=== PATIENT | female | born 1980 | race Caucasian/White ===

== ENCOUNTER 2016-10-29 08:22 | Emergency (ER) | payer OTHER ==
[2016-10-29 08:27] VITALS: TEMP 98
--- NOTE | 2016-10-29 08:45 | ED ---
General Adult HPI - General Chief complaint: Vaginal Bleeding Stated complaint: AND BLEEDING Time Seen by Provider: 10/29/16 08:29 Source: patient, RN notes reviewed Mode of arrival: ambulatory Limitations: no limitations - History of Present Illness Initial comments: 36-year-old female presents emergency Department chief complaint vaginal bleeding and . Patient states that she was at her OB on for casting after an abnormal Pap smear though they cannot complete the tests and because she was . Patient had hCG level drawn which was 57. Patient was. Redrawn on Monday. Patient denies any nausea vomiting diarrhea constipation. Patient states she is having lower abdominal pain, cramping. Patient states she is spotting to light bleeding at this time. She states she woke up no cervical bleeding and came to the emergency department. - Related Data Home Medications Medication Instructions Recorded Confirmed Albuterol Inhaler [Ventolin Hfa 2 puff INHALATION RT-Q6H PRN 05/17/16 10/29/16 Inhaler] Budesonide-Formot 160-4.5 Mcg 2 puff INHALATION RT-BID 05/17/16 10/29/16 [Symbicort 160-4.5 Mcg Inhaler] Allergies Allergy/AdvReac Type Severity Reaction Status Date / Time amoxicillin [Amoxicillin] Allergy Anaphylaxis Verified 10/29/16 08:23 aspirin Allergy Anaphylaxis Verified 10/29/16 08:23 Penicillins Allergy Anaphylaxis Verified 10/29/16 08:23 Review of Systems ROS Statement: Those systems with pertinent positive or pertinent negative responses have been documented in the HPI. ROS Other: All systems not noted in ROS Statement are negative. Past Medical History Past Medical History: Asthma Additional Past Medical History / Comment(s): migraines History of Any Multi-Drug Resistant Organisms: None Reported Past Surgical History: Appendectomy, Cholecystectomy, Orthopedic Surgery, Tonsillectomy Additional Past Surgical History / Comment(s): dental surgery Past Psychological History: Anxiety, Depression Smoking Status: Current every day smoker Past Alcohol Use History: None Reported Past Drug Use History: None Reported General Exam Limitations: no limitations General appearance: alert, in no apparent distress Head exam: Present: atraumatic, normocephalic, normal inspection Respiratory exam: Present: normal lung sounds bilaterally. Absent: respiratory distress, wheezes, rales, rhonchi, stridor Cardiovascular Exam: Present: regular rate, normal rhythm, normal heart sounds. Absent: systolic murmur, diastolic murmur, rubs, gallop, clicks GI/Abdominal exam: Present: soft, normal bowel sounds. Absent: distended, tenderness, guarding, rebound, rigid Back exam: Absent: CVA tenderness (R), CVA tenderness (L) Course Vital Signs 10/29/16 08:24 Temperature 98.0 F Pulse Rate 115 H Respiratory 18 Rate Blood Pressure 118/76 O2 Sat by Pulse 95 Oximetry Medical Decision Making - Medical Decision Making 36-year-old female presented for vaginal bleeding . Patient was just at her SURGICAL SPECIALIST on . Patient's hCG went from 57-54. Patient is having a miscarriage at this time. Patient's blood type is a positive does not require broke him. Patient is upset at this time refuses pelvic exam. Patient states that she just had this done by her SURGICAL SPECIALIST. - Lab Data Result diagrams: 10/29/16 08:51 10/29/16 08:51 Lab Results 10/29/16 10/29/16 10/29/16 Range/Units 08:51 08:51 08:55 WBC 9.7 (3.8-10.6) k/uL RBC 5.00 (3.80-5.40) m/uL Hgb 15.6 (11.4-16.0) gm/dL Hct 45.4 (34.0-46.0) % MCV 90.8 (80.0-100.0) fL MCH 31.2 (25.0-35.0) pg MCHC 34.4 (31.0-37.0) g/dL RDW 12.3 (11.5-15.5) % Plt Count 262 (150-450) k/uL Neutrophils % 60 % Lymphocytes % 27 % Monocytes % 6 % Eosinophils % 4 % Basophils % 1 % Neutrophils # 5.8 (1.3-7.7) k/uL Lymphocytes # 2.6 (1.0-4.8) k/uL Monocytes # 0.6 (0-1.0) k/uL Eosinophils # 0.3 (0-0.7) k/uL Basophils # 0.1 (0-0.2) k/uL Sodium 142 (137-145) mmol/L Potassium 4.5 (3.5-5.1) mmol/L Chloride 107 (98-107) mmol/L Carbon Dioxide 24 (22-30) mmol/L Anion Gap 11 mmol/L BUN 11 (7-17) mg/dL Creatinine 0.71 (0.52-1.04) mg/dL Est GFR (MDRD) Af Amer >60 (>60 ml/min/1.73 sqM) Est GFR (MDRD) Non-Af >60 (>60 ml/min/1.73 sqM) Glucose 98 (74-99) mg/dL Calcium 9.6 (8.4-10.2) mg/dL HCG, Quant 54.3 mIU/mL Blood Type A Positive Blood Type Recheck No Disposition Clinical Impression: Miscarriage Disposition: HOME SELF-CARE Condition: Stable Instructions: Miscarriage (ED) Additional Instructions: Please return to the Emergency Department if symptoms worsen or any other concerns. Follow-up with your SURGICAL SPECIALIST is discussed. Time of Disposition: 10:40
[2016-10-29 09:00] LABS: Basophils # (A) 0.1 k/uL (0-0.2); Basophils % (A) 1 %; CHCM 35.3; Eosinophils # (A) 0.3 k/uL (0-0.7); Eosinophils % (A) 4 %; HCT 45.4 % (34.0-46.0); HDW 2.49; HGB 15.6 gm/dL (11.4-16.0); Luc # (Auto) 0.23; Luc % (Auto) 2; Lymphocytes # (A) 2.6 k/uL (1.0-4.8); Lymphocytes % (A) 27 %; MCH 31.2 pg (25.0-35.0); MCHC 34.4 g/dL (31.0-37.0); MCV 90.8 fL (80.0-100.0); Mean Platelet Volume 7.3; Monocytes # (A) 0.6 k/uL (0-1.0); Monocytes % (A) 6 %; Neutrophils # (A) 5.8 k/uL (1.3-7.7); Neutrophils % (A) 60 %; RDW 12.3 % (11.5-15.5); WBC 9.7 k/uL (3.8-10.6); WBC (Perox) 9.67
[2016-10-29 09:16] LABS: Anion Gap 11 mmol/L; Blood Urea Nitrogen 11 mg/dL (7-17); Calcium 9.6 mg/dL (8.4-10.2); Carbon Dioxide 24 mmol/L (22-30); Chloride 107 mmol/L (98-107); Glucose 98 mg/dL (74-99); Non-African American GFR(MDRD) >60 (>60 ml/min/1.73 sqM); Potassium 4.5 mmol/L (3.5-5.1); Sodium 142 mmol/L (137-145)
[2016-10-29 09:33] LABS: HCG,Quantitative Serum 54.3 mIU/mL
[2016-10-29 10:49] VITALS: BP 126/74; PULSE 89; RESP 16
--- NOTE | 2016-10-29 19:38 | US ---
EXAMINATION TYPE: US OB <=14 wks transvag DATE OF EXAM: 10/29/2016 9:42 AM COMPARISON: No previous CLINICAL HISTORY: Pain. Bleeding and cramping x 2 days, 1 EXAM PERFORMED: Transvaginal (TV) and Transabdominal (TA) transvaginal imaging performed for better evaluation of the uterus and ovaries. Grayscale, color Doppler imaging performed. EXAM MEASUREMENTS: GESTATIONAL AGE / DATING Physician Established: Not established yet Dates by LMP: (5 weeks/1 days) EDC: 06/30/2017 Dates by First Scan: This is 1st scan Dates by Current Scan for: No IUP seen at this time MATERNAL ANATOMY Uterus: 6.7 x 3.5 x 3.9cm, anteverted, multiple nabothian cyst Endometrium: 0.4cm Right Ovary: 2.3 x 1.6 x 1.2cm Left Ovary: 2.4 x 1.1 x 2.1cm, 0.7cm cystic area Post CDS / Adnexa: wnl Presence of free fluid: no Presence of corpus luteal cyst: not seen at this time Presence of subchorionic bleed: no GESTATION / SURVEY IUP: No IUP seen at this time Date of LMP: 09/23/16 Beta HcG (if available): 54.3 No IUP seen at this time IMPRESSION: Intrauterine is not identified.
== END 2016-10-29 10:49 | disposition home or self-care (01) ==
LOC: EC 08:22
DX: O03.9 Complete or unspecified spontaneous abortion without complication (principal); O99.511 Diseases of the respiratory system complicating pregnancy, first trimester; J45.909 Unspecified asthma, uncomplicated; Z3A.01 Less than 8 weeks gestation of pregnancy; Z79.899 Other long term (current) drug therapy; Z88.0 Allergy status to penicillin; Z88.6 Allergy status to analgesic agent
CPT/HCPCS: 36415; 76801; 76817; 80048; 84702; 85025; 86900; 86901; 99284

== ENCOUNTER 2016-12-14 01:36 | Emergency (ER) | payer OTHER ==
[2016-12-14 01:51] VITALS: RESP 18
[2016-12-14] MEDS ORDERED: SODIUM CHLORIDE 0.9% 1,000 ML IV STA (01:52)
[2016-12-14] MEDS ORDERED: LORazepam 2 MG/ML SYRINGE IV STA (01:52)
--- NOTE | 2016-12-14 02:00 | ED ---
General Adult HPI - General Chief complaint: Syncope Stated complaint: Syncope,lost time Time Seen by Provider: 12/14/16 01:47 Source: patient, RN notes reviewed Mode of arrival: wheelchair Limitations: no limitations - History of Present Illness Initial comments: 36-year-old female presents to the emergency department with a chief complaint of concern for unusual behavior. Patient states she woke up out of sleep gasping. Patient states she went to sit at the side the bed and then she lost track of time. Patient states when she woke up she was laying on the bed she had wet herself. Patient states that she seemed confused after that. Patient states this feeling came here to the emergency department. Patient is currently being worked up for these episodes that she has had one other in the past. She scheduled to see a neurologist as well as the construction technician. Patient states she does have a headache. Patient does have a history of migraines states his headache is more pronounced throughout her whole head. Patient states she was concerned due to what have so she thought that she should be seen. Patient denies any symptoms at this time it does believe that she is return to normal. Patient denies any recent fever, chills, shortness of breath, chest pain, back pain, abdominal pain, nausea vomiting, numbness or tingling, dysuria or hematuria, constipation or diarrhea, visual changes, or any other current symptoms. - Related Data Home Medications Medication Instructions Recorded Confirmed Albuterol Inhaler [Ventolin Hfa 1 - 2 puff INHALATION Q6HR PRN 11/29/16 12/14/16 Inhaler] Budesonide-Formot 160-4.5 Mcg 2 puff INHALATION BID 11/29/16 12/14/16 [Symbicort 160-4.5 Mcg Inhaler] Allergies Allergy/AdvReac Type Severity Reaction Status Date / Time amoxicillin [Amoxicillin] Allergy Anaphylaxis Verified 11/29/16 16:01 aspirin Allergy Anaphylaxis Verified 11/29/16 16:01 Penicillins Allergy Anaphylaxis Verified 11/29/16 16:01 Review of Systems ROS Statement: Those systems with pertinent positive or pertinent negative responses have been documented in the HPI. ROS Other: All systems not noted in ROS Statement are negative. Past Medical History Past Medical History: Asthma Additional Past Medical History / Comment(s): migraines History of Any Multi-Drug Resistant Organisms: None Reported Past Surgical History: Appendectomy, Cholecystectomy, Orthopedic Surgery, Tonsillectomy Additional Past Surgical History / Comment(s): dental surgery Past Psychological History: Anxiety, Depression Smoking Status: Current every day smoker Past Alcohol Use History: None Reported Past Drug Use History: None Reported General Exam - General Exam Comments Initial Comments: General: The patient is awake and alert, in no distress, and does not appear acutely ill. Eye: Pupils are equal, round and reactive to light, extra-ocular movements are intact; there is normal conjunctiva bilaterally. No signs of icterus. Ears, nose, mouth and throat: There are moist mucous membranes. Neck: The neck is supple, there is no tenderness. Cardiovascular: There is a regular rate and rhythm. No murmur, rub or gallop is appreciated. Respiratory: Lungs are clear to auscultation, respirations are non-labored, breath sounds are equal. No wheezes, stridor, rales, or rhonchi. Gastrointestinal: Soft, non-distended, non-tender abdomen without masses or organomegaly noted. There is no rebound or guarding present. No CVA tenderness. Bowel sounds are unremarkable. Back: There is no tenderness to palpation in the midline. There is no obvious deformity. No rashes noted. Musculoskeletal: Normal ROM, no tenderness, There is no pedal edema. There is no calf tenderness or swelling. Sensation intact. Pulses equal bilaterally 2+. Neurological: CN II-XII intact, There are no obvious motor or sensory deficits. Coordination appears grossly intact. Speech is normal. Skin: Skin is warm and dry and no rashes or lesions are noted. Psychiatric: Cooperative, appropriate mood & affect, normal judgment. Limitations: no limitations Course Vital Signs 12/14/16 01:41 Temperature 97.7 F Pulse Rate 81 Respiratory 18 Rate Blood Pressure 111/72 O2 Sat by Pulse 98 Oximetry EKG Findings - EKG Comments: EKG Findings:: normal sinus rhythm 76 bpm, normal axis, no atopy, no S-T depressions or elevations, Medical Decision Making - Medical Decision Making 36-year-old female presents emergency department with a chief complaint of what sounds like seizure-like activity. This time we discussed continued outpatient follow-up. We discussed return parameters all patient's questions. She stated that she understood and she plan. This time she will be discharged home. - Lab Data Result diagrams: 12/14/16 02:11 12/14/16 02:11 Lab Results 12/14/16 12/14/16 12/14/16 Range/Units 02:11 02:11 03:00 WBC 9.4 (3.8-10.6) k/uL RBC 4.51 (3.80-5.40) m/uL Hgb 14.2 (11.4-16.0) gm/dL Hct 42.2 (34.0-46.0) % MCV 93.6 (80.0-100.0) fL MCH 31.4 (25.0-35.0) pg MCHC 33.5 (31.0-37.0) g/dL RDW 13.0 (11.5-15.5) % Plt Count 216 (150-450) k/uL Neutrophils % 52 % Lymphocytes % 35 % Monocytes % 6 % Eosinophils % 5 % Basophils % 1 % Neutrophils # 4.9 (1.3-7.7) k/uL Lymphocytes # 3.3 (1.0-4.8) k/uL Monocytes # 0.5 (0-1.0) k/uL Eosinophils # 0.5 (0-0.7) k/uL Basophils # 0.1 (0-0.2) k/uL Sodium 139 (137-145) mmol/L Potassium 3.9 (3.5-5.1) mmol/L Chloride 108 H (98-107) mmol/L Carbon Dioxide 24 (22-30) mmol/L Anion Gap 7 mmol/L BUN 15 (7-17) mg/dL Creatinine 0.81 (0.52-1.04) mg/dL Est GFR (MDRD) Af Amer >60 (>60 ml/min/1.73 sqM) Est GFR (MDRD) Non-Af >60 (>60 ml/min/1.73 sqM) Glucose 100 H (74-99) mg/dL Calcium 8.8 (8.4-10.2) mg/dL Total Bilirubin 0.6 (0.2-1.3) mg/dL AST 14 (14-36) U/L ALT 18 (9-52) U/L Alkaline Phosphatase 51 (38-126) U/L Total Protein 6.5 (6.3-8.2) g/dL Albumin 3.8 (3.5-5.0) g/dL Urine Color Light Yellow Urine Appearance Clear (Clear) Urine pH 5.0 (5.0-8.0) Ur Specific [place] 1.007 (1.001-1.035) Urine Protein Negative (Negative) Urine Glucose (UA) Negative (Negative) Urine Ketones Negative (Negative) Urine Blood Negative (Negative) Urine Nitrite Negative (Negative) Urine Bilirubin Negative (Negative) Urine Urobilinogen <2.0 (<2.0) mg/dL Ur Leukocyte Esterase Moderate H (Negative) Urine RBC 1 (0-5) /hpf Urine WBC 5 (0-5) /hpf Ur Squamous Epith Cells 2 (0-4) /hpf Urine Bacteria Rare H (None) /hpf Urine Mucus Rare H (None) /hpf Urine Sperm Few H (None) /hpf Urine Opiates Screen Not Detected (NotDetected) Ur Oxycodone Screen Not Detected (NotDetected) Urine Methadone Screen Not Detected (NotDetected) Ur Propoxyphene Screen Not Detected (NotDetected) Ur Barbiturates Screen Not Detected (NotDetected) U Tricyclic Antidepress Not Detected (NotDetected) Ur Phencyclidine Scrn Not Detected (NotDetected) Ur Amphetamines Screen Not Detected (NotDetected) U Methamphetamines Scrn Not Detected (NotDetected) U Benzodiazepines Scrn Not Detected (NotDetected) Urine Cocaine Screen Not Detected (NotDetected) U Marijuana (THC) Screen Not Detected (NotDetected) - Radiology Data Radiology results: report reviewed, image reviewed Disposition Clinical Impression: Seizure-like activity Disposition: HOME SELF-CARE Condition: Stable Instructions: New-Onset Seizure in Adults (ED) Additional Instructions: Please use medication as discussed. Please follow up with family doctor if symptoms have not improved over the next two days. Please return to the emergency room if your symptoms increase or worsen or for any other concerns. No driving for 6 months or until cleared by your neurologist. Referrals: Lupe Wick MD [Primary Care Provider] - 1-2 days Time of Disposition: 03:34
[2016-12-14 02:19] LABS: Basophils # (A) 0.1 k/uL (0-0.2); Basophils % (A) 1 %; CH 31.9; CHCM 34.2; Eosinophils # (A) 0.5 k/uL (0-0.7); Eosinophils % (A) 5 %; HCT 42.2 % (34.0-46.0); HGB 14.2 gm/dL (11.4-16.0); Luc # (Auto) 0.15; Luc % (Auto) 2; Lymphocytes # (A) 3.3 k/uL (1.0-4.8); Lymphocytes % (A) 35 %; MCH 31.4 pg (25.0-35.0); MCHC 33.5 g/dL (31.0-37.0); MCV 93.6 fL (80.0-100.0); Mean Platelet Volume 7.5; Monocytes # (A) 0.5 k/uL (0-1.0); Monocytes % (A) 6 %; Neutrophils # (A) 4.9 k/uL (1.3-7.7); Neutrophils % (A) 52 %; RBC 4.51 m/uL (3.80-5.40); WBC 9.4 k/uL (3.8-10.6); WBC (Perox) 9.27
[2016-12-14 02:28] LABS: ALT 18 U/L (9-52); AST 14 U/L (14-36); Alkaline Phosphatase 51 U/L (38-126); Anion Gap 7 mmol/L; Blood Urea Nitrogen 15 mg/dL (7-17); Calcium 8.8 mg/dL (8.4-10.2); Carbon Dioxide 24 mmol/L (22-30); Chloride 108 mmol/L (98-107); Glucose 100 mg/dL (74-99); Non-African American GFR(MDRD) >60 (>60 ml/min/1.73 sqM); Potassium 3.9 mmol/L (3.5-5.1); Sodium 139 mmol/L (137-145); Total Bilirubin 0.6 mg/dL (0.2-1.3); Total Protein 6.5 g/dL (6.3-8.2)
--- NOTE | 2016-12-14 03:16 | CT ---
History: Reason: seizure activity Exam: CT HEAD Without Contrast axial noncontrast images through the brain with multiplanar reformatted images Technique more: CTDI is 57.40 mGy and DLP is 1015.30 mGy-cm. Technique more: This CT exam was performed using one or more of the following dose reduction techniques: automated exposure control, adjustment of the mA and/or kV according to patient size, and/or use of iterative reconstruction technique. Comparison: None available FINDINGS: No intracranial hemorrhage or mass effect. The shah-white differentiation appears preserved. The ventricles are within limits and midline. The visualized paranasal sinuses, mastoid and orbits are within limits. IMPRESSION: No intracranial hemorrhage or mass effect. If no known seizure disorder, may follow-up with nonemergent MRI as warranted.
[2016-12-14 03:18] LABS: Appearance,Urine Clear (Clear); Bacteria,Urine Rare /hpf; Bilirubin,Urine Negative (Negative); Glucose,Urine (UA) Negative (Negative); Ketones,Urine Negative (Negative); Leukocyte Esterase,Urine Moderate (Negative); Mucus,Urine Rare /hpf; Nitrite,Urine Negative (Negative); Particle Count 2678; Protein,Urine Negative (Negative); RBC,Urine 1 /hpf (0-5); Specific Gravity,Urine 1.007 (1.001-1.035); Sperm,Urine Few /hpf; Squamous Epithelial Cell,Urine 2 /hpf (0-4); UA Billing (MACRO vs. MICRO) MICRO; Urobilinogen,Urine <2.0 mg/dL (<2.0); WBC,Urine 5 /hpf (0-5)
[2016-12-14] MEDS ORDERED: METOCLOPRAMIDE 5 MG/ML 2 ML VIAL IVP STA (03:18)
[2016-12-14] MEDS ORDERED: diphenhydrAMINE 50 MG/ML 1 ML VIAL IVP STA (03:18)
[2016-12-14] MEDS ORDERED: KETOROLAC 30 MG/ML 1 ML VIAL IVP STA (03:18)
[2016-12-14 03:48] VITALS: BP 100/56; PULSE 80; TEMP 98.8
== END 2016-12-14 03:59 | disposition home or self-care (01) ==
LOC: EC 01:36
DX: R56.9 Unspecified convulsions (principal); J45.909 Unspecified asthma, uncomplicated; F17.200 Nicotine dependence, unspecified, uncomplicated; Z79.51 Long term (current) use of inhaled steroids; Z88.0 Allergy status to penicillin; Z88.6 Allergy status to analgesic agent
CPT/HCPCS: 36415; 93005; 80053; 85025; 81001; 80306; 70450; 99284; 96374; 96375 ×3; 96361; J2060; J1200; J2765; J1885

== ENCOUNTER → 2016-12-16 | Outpatient (CLI) | payer OTHER ==
--- NOTE | 2016-12-16 13:15 | MR ---
EXAMINATION TYPE: MR brain wo con DATE OF EXAM: 12/16/2016 12:25 PM. COMPARISON: CT scan of the brain dated 12/14/2016. HISTORY: Headaches and syncope. Technique: Multiplanar, multiecho imaging of the brain was obtained without intravenous contrast. FINDINGS: Midline structures are unremarkable. There is a normal craniocervical junction. Echoplanar diffusion imaging is normal. There are normal vascular flow voids. There is mild, chronic mucoperiosteal thickening involving the ethmoid sinuses. The orbits are normal. There is no evidence of a CP angle mass lesion. There is no focal lesion, mass effect or midline shif t identified. I do not see evidence of intracranial blood. IMPRESSION: 1. NO ACUTE INTRACRANIAL ABNORMALITY. 2. MILD, CHRONIC ETHMOIDAL SINUS MUCOSAL DISEASE.
== END | disposition home or self-care (01) ==
LOC: RADMRIMAIN 11:53
PROVIDERS: ATTEND Family Medicine
DX: R51 Headache (principal); R55 Syncope and collapse
CPT/HCPCS: 70551

== ENCOUNTER 2017-02-15 00:50 | Emergency (ER) | payer OTHER ==
[2017-02-15 00:55] VITALS: RESP 18
[2017-02-15] MEDS ORDERED: SODIUM CHLORIDE 0.9% 1,000 ML IV ONE (01:36)
[2017-02-15] MEDS ORDERED: METOCLOPRAMIDE 5 MG/ML 2 ML VIAL IVP STA (01:37)
[2017-02-15] MEDS ORDERED: diphenhydrAMINE 50 MG/ML 1 ML VIAL IVP STA (01:37)
--- NOTE | 2017-02-15 01:38 | ED ---
Headache HPI - General Chief Complaint: Headache Stated Complaint: Migrane Time Seen by Provider: 02/15/17 01:14 Source: RN notes reviewed Mode of arrival: EMS Limitations: no limitations - History of Present Illness Initial Comments: Patient is a 36-year-old female since emergency room for reevaluation headache. Patient states she has a history of migraine headaches. Patient states this headache is a lot worse. Patient states migraine headache began yesterday gradually been getting worse. Patient states medication she's been taking at home about been helping. Patient states been nauseous with vomiting. Patient denies fevers or chills. Patient does admit to photophobia and phonophobia. Patient denies abdominal pain. Patient denies chest pain or shortness of breath. Patient denies paresthesias. Patient denies any recent head trauma or neck injuries. Patient states this migraine is different from her normal migraines. Patient states this migraine is a lot worse than usual. - Related Data Home Medications Medication Instructions Recorded Confirmed Albuterol Inhaler [Ventolin Hfa 1 - 2 puff INHALATION Q6HR PRN 11/29/16 12/14/16 Inhaler] Budesonide-Formot 160-4.5 Mcg 2 puff INHALATION BID 11/29/16 12/14/16 [Symbicort 160-4.5 Mcg Inhaler] Allergies Allergy/AdvReac Type Severity Reaction Status Date / Time amoxicillin [Amoxicillin] Allergy Anaphylaxis Verified 02/15/17 00:55 aspirin Allergy Anaphylaxis Verified 11/29/16 16:01 Penicillins Allergy Anaphylaxis Verified 02/15/17 00:55 Review of Systems ROS Statement: Those systems with pertinent positive or pertinent negative responses have been documented in the HPI. ROS Other: All systems not noted in ROS Statement are negative. Past Medical History Past Medical History: Asthma Additional Past Medical History / Comment(s): migraines History of Any Multi-Drug Resistant Organisms: None Reported Past Surgical History: Appendectomy, Cholecystectomy, Orthopedic Surgery, Tonsillectomy Additional Past Surgical History / Comment(s): dental surgery Past Psychological History: Anxiety, Depression Smoking Status: Current every day smoker Past Alcohol Use History: None Reported Past Drug Use History: None Reported General Exam - General Exam Comments Initial Comments: laying in exam room, no acute distress. Limitations: no limitations General appearance: alert, in no apparent distress Head exam: Present: atraumatic, normocephalic, normal inspection Eye exam: Present: normal appearance, PERRL, EOMI Pupils: Present: normal accommodation ENT exam: Present: normal exam Neck exam: Present: normal inspection, full ROM. Absent: tenderness, lymphadenopathy Respiratory exam: Present: normal lung sounds bilaterally. Absent: respiratory distress Cardiovascular Exam: Present: regular rate, normal rhythm, normal heart sounds Neurological exam: Present: alert, oriented X3, CN II-XII intact, normal gait Expanded Patient oriented to: Present: person, place, time Speech: Present: fluid speech Cranial nerves: EOM's Intact: Normal, Facial Sensation: Normal Sensory exam: Upper Extremity Light Touch: Normal, Lower Extremity Light Touch: Normal Motor strength exam: RUE: 5, LUE: 5, RLE: 5, LLE: 5 Psychiatric exam: Present: normal affect, normal mood Skin exam: Present: warm, dry, intact, normal color. Absent: rash Course Vital Signs 02/15/17 00:51 Temperature 97.5 F L Pulse Rate 80 Respiratory 18 Rate Blood Pressure 135/63 O2 Sat by Pulse 96 Oximetry Medical Decision Making - Medical Decision Making patient is a 36-year-old female presents to the emergency room for evaluation of migraine headache. Labs show significant findings. Patient states she is feeling better after fluids and medications given. Brain CT shows no acute findings. Patient states she understands everything that was discussed with her. Return parameters discussed. - Lab Data Result diagrams: 02/15/17 01:00 02/15/17 01:00 Lab Results 02/15/17 02/15/17 02/15/17 Range/Units 01:00 01:00 02:10 WBC 8.7 (3.8-10.6) k/uL RBC 4.73 (3.80-5.40) m/uL Hgb 14.9 (11.4-16.0) gm/dL Hct 43.8 (34.0-46.0) % MCV 92.5 (80.0-100.0) fL MCH 31.4 (25.0-35.0) pg MCHC 34.0 (31.0-37.0) g/dL RDW 13.5 (11.5-15.5) % Plt Count 237 (150-450) k/uL Neutrophils % 54 % Lymphocytes % 32 % Monocytes % 7 % Eosinophils % 3 % Basophils % 1 % Neutrophils # 4.7 (1.3-7.7) k/uL Lymphocytes # 2.8 (1.0-4.8) k/uL Monocytes # 0.6 (0-1.0) k/uL Eosinophils # 0.3 (0-0.7) k/uL Basophils # 0.1 (0-0.2) k/uL Sodium 140 (137-145) mmol/L Potassium 3.9 (3.5-5.1) mmol/L Chloride 106 (98-107) mmol/L Carbon Dioxide 23 (22-30) mmol/L Anion Gap 11 mmol/L BUN 11 (7-17) mg/dL Creatinine 0.80 (0.52-1.04) mg/dL Est GFR (MDRD) Af Amer >60 (>60 ml/min/1.73 sqM) Est GFR (MDRD) Non-Af >60 (>60 ml/min/1.73 sqM) Glucose 85 (74-99) mg/dL Calcium 8.9 (8.4-10.2) mg/dL Total Bilirubin 0.5 (0.2-1.3) mg/dL AST 19 (14-36) U/L ALT 31 (9-52) U/L Alkaline Phosphatase 62 (38-126) U/L Total Protein 6.0 L (6.3-8.2) g/dL Albumin 3.6 (3.5-5.0) g/dL Urine Color Urine Appearance (Clear) Urine pH (5.0-8.0) Ur Specific [place] (1.001-1.035) Urine Protein (Negative) Urine Glucose (UA) (Negative) Urine Ketones (Negative) Urine Blood (Negative) Urine Nitrite (Negative) Urine Bilirubin (Negative) Urine Urobilinogen (<2.0) mg/dL Ur Leukocyte Esterase (Negative) Urine RBC (0-5) /hpf Urine WBC (0-5) /hpf Ur Squamous Epith Cells (0-4) /hpf Urine Bacteria (None) /hpf Hyaline Casts (0-2) /lpf Urine Mucus (None) /hpf Urine HCG, Qual Not Detected (Not Detectd) 02/15/17 Range/Units 02:10 WBC (3.8-10.6) k/uL RBC (3.80-5.40) m/uL Hgb (11.4-16.0) gm/dL Hct (34.0-46.0) % MCV (80.0-100.0) fL MCH (25.0-35.0) pg MCHC (31.0-37.0) g/dL RDW (11.5-15.5) % Plt Count (150-450) k/uL Neutrophils % % Lymphocytes % % Monocytes % % Eosinophils % % Basophils % % Neutrophils # (1.3-7.7) k/uL Lymphocytes # (1.0-4.8) k/uL Monocytes # (0-1.0) k/uL Eosinophils # (0-0.7) k/uL Basophils # (0-0.2) k/uL Sodium (137-145) mmol/L Potassium (3.5-5.1) mmol/L Chloride (98-107) mmol/L Carbon Dioxide (22-30) mmol/L Anion Gap mmol/L BUN (7-17) mg/dL Creatinine (0.52-1.04) mg/dL Est GFR (MDRD) Af Amer (>60 ml/min/1.73 sqM) Est GFR (MDRD) Non-Af (>60 ml/min/1.73 sqM) Glucose (74-99) mg/dL Calcium (8.4-10.2) mg/dL Total Bilirubin (0.2-1.3) mg/dL AST (14-36) U/L ALT (9-52) U/L Alkaline Phosphatase (38-126) U/L Total Protein (6.3-8.2) g/dL Albumin (3.5-5.0) g/dL Urine Color Yellow Urine Appearance Cloudy H (Clear) Urine pH 5.0 (5.0-8.0) Ur Specific [place] 1.013 (1.001-1.035) Urine Protein Trace H (Negative) Urine Glucose (UA) Negative (Negative) Urine Ketones Negative (Negative) Urine Blood Large H (Negative) Urine Nitrite Negative (Negative) Urine Bilirubin Negative (Negative) Urine Urobilinogen <2.0 (<2.0) mg/dL Ur Leukocyte Esterase Trace H (Negative) Urine RBC 83 H (0-5) /hpf Urine WBC 9 H (0-5) /hpf Ur Squamous Epith Cells 6 H (0-4) /hpf Urine Bacteria Occasional H (None) /hpf Hyaline Casts 4 H (0-2) /lpf Urine Mucus Occasional H (None) /hpf Urine HCG, Qual (Not Detectd) - Radiology Data Radiology results: report reviewed, image reviewed Disposition Clinical Impression: Migraine Disposition: HOME SELF-CARE Condition: Good Instructions: Acute Headache (ED) Additional Instructions: Please follow up with primary care provider in 1-2 days. If any new symptom arises or symptoms worsen, return to ER as soon as possible. Referrals: Lupe Wick MD [Primary Care Provider] - 1-2 days Time of Disposition: 03:41
[2017-02-15 01:46] LABS: Basophils # (A) 0.1 k/uL (0-0.2); Basophils % (A) 1 %; CH 32.1; CHCM 34.8; Eosinophils # (A) 0.3 k/uL (0-0.7); Eosinophils % (A) 3 %; HCT 43.8 % (34.0-46.0); HDW 2.33; HGB 14.9 gm/dL (11.4-16.0); Luc # (Auto) 0.26; Luc % (Auto) 3; Lymphocytes # (A) 2.8 k/uL (1.0-4.8); Lymphocytes % (A) 32 %; MCH 31.4 pg (25.0-35.0); MCV 92.5 fL (80.0-100.0); Monocytes # (A) 0.6 k/uL (0-1.0); Monocytes % (A) 7 %; Neutrophils # (A) 4.7 k/uL (1.3-7.7); Neutrophils % (A) 54 %; RBC 4.73 m/uL (3.80-5.40); RDW 13.5 % (11.5-15.5); WBC 8.7 k/uL (3.8-10.6); WBC (Perox) 8.89
[2017-02-15 01:56] LABS: ALT 31 U/L (9-52); AST 19 U/L (14-36); Alkaline Phosphatase 62 U/L (38-126); Anion Gap 11 mmol/L; Blood Urea Nitrogen 11 mg/dL (7-17); Calcium 8.9 mg/dL (8.4-10.2); Carbon Dioxide 23 mmol/L (22-30); Chloride 106 mmol/L (98-107); Glucose 85 mg/dL (74-99); Non-African American GFR(MDRD) >60 (>60 ml/min/1.73 sqM); Potassium 3.9 mmol/L (3.5-5.1); Sodium 140 mmol/L (137-145); Total Bilirubin 0.5 mg/dL (0.2-1.3)
[2017-02-15 02:23] LABS: Appearance,Urine Cloudy (Clear); Bacteria,Urine Occasional /hpf; Bilirubin,Urine Negative (Negative); Glucose,Urine (UA) Negative (Negative); Ketones,Urine Negative (Negative); Leukocyte Esterase,Urine Trace (Negative); Mucus,Urine Occasional /hpf; Nitrite,Urine Negative (Negative); Particle Count 8646; Protein,Urine Trace (Negative); RBC,Urine 83 /hpf (0-5); Specific Gravity,Urine 1.013 (1.001-1.035); Squamous Epithelial Cell,Urine 6 /hpf (0-4); UA Billing (MACRO vs. MICRO) MICRO; Urobilinogen,Urine <2.0 mg/dL (<2.0); WBC,Urine 9 /hpf (0-5)
--- NOTE | 2017-02-15 03:34 | CT ---
EXAM: CT Head Without Intravenous Contrast CLINICAL HISTORY: Headache, migraine. TECHNIQUE: Axial computed tomography images of the head/brain without intravenous contrast. Coronal and sagittal reformations provided. DOSE INFORMATION: CTDI is 57.40 mGy and DLP is 1029.90 mGy-cm. This CT exam was performed using one or more of the following dose reduction techniques: automated exposure control, adjustment of the mA and/or kV according to patient size, and/or use of iterative reconstruction technique. COMPARISON: MRI dated 12/16/[address] dated 12/14/2016. FINDINGS: Brain: No acute intracranial hemorrhage. No evidence of acute territorial infarct. No significant white matter disease. No edema. No mass effect or midline shift. Ventricles: Unremarkable. No ventriculomegaly. Bones/joints: Unremarkable. No acute fracture. Soft tissues: Unremarkable. Sinuses: Mild mucosal disease of the paranasal sinuses. No air-fluid levels in the visualized paranasal sinuses. Mastoid air cells: Unremarkable as visualized. No mastoid effusion. IMPRESSION: 1. No evidence of acute intracranial abnormality. 2. Mild mucosal disease of the paranasal sinuses. No air-fluid levels in the visualized paranasal sinuses.
[2017-02-15 04:02] VITALS: BP 109/53; PULSE 75; TEMP 98.4
== END 2017-02-15 04:01 | disposition home or self-care (01) ==
LOC: EC 00:50
DX: G43.909 Migraine, unspecified, not intractable, without status migrainosus (principal); J45.909 Unspecified asthma, uncomplicated; F17.200 Nicotine dependence, unspecified, uncomplicated; Z79.51 Long term (current) use of inhaled steroids; Z88.0 Allergy status to penicillin; Z88.6 Allergy status to analgesic agent
CPT/HCPCS: 36415; 80053; 85025; 81001; 81025; 70450; 99284; 96374; 96375; 96361 ×2; J1200; J2765

== ENCOUNTER → 2017-06-15 | Outpatient (CLI) | payer OTHER ==
[2017-06-15 11:33] LABS: HCT 42.8 % (34.0-46.0); HGB 14.4 gm/dL (11.4-16.0); MCH 31.5 pg (25.0-35.0); MCHC 33.6 g/dL (31.0-37.0); MCV 93.7 fL (80.0-100.0); Mean Platelet Volume 6.9; Platelet Count 259 k/uL (150-450); RBC 4.57 m/uL (3.80-5.40); RDW 12.6 % (11.5-15.5); WBC 7.7 k/uL (3.8-10.6)
[2017-06-15 11:43] LABS: ALT 32 U/L (9-52); AST 21 U/L (14-36); Albumin 3.4 g/dL (3.5-5.0); Alkaline Phosphatase 44 U/L (38-126); Amylase 35 U/L (30-110); Anion Gap 4 mmol/L; Blood Urea Nitrogen 13 mg/dL (7-17); Calcium 8.8 mg/dL (8.4-10.2); Carbon Dioxide 27 mmol/L (22-30); Chloride 106 mmol/L (98-107); Glucose 90 mg/dL (74-99); Lipase 87 U/L (23-300); Potassium 4.4 mmol/L (3.5-5.1); Sodium 137 mmol/L (137-145); Total Bilirubin 0.5 mg/dL (0.2-1.3); Total Protein 5.8 g/dL (6.3-8.2)
--- NOTE | 2017-06-15 13:37 | CT ---
EXAMINATION TYPE: CT abdomen pelvis w con DATE OF EXAM: 06/15/2017 HISTORY: RLQ pain; Contusion of abdominal wall CT DLP: 1697mGycm Automated Exposure Control for Dose Reduction was Utilized. CONTRAST: CT scan of the abdomen and pelvis is performed with IV Contrast, patient injected with 100 ml mL of O mnipaque 300. COMPARISON: None. FINDINGS: LUNG BASES: No significant abnormality is appreciated. LIVER/GB: Cholecystectomy clips are noted. A few clips inferior to the medial right lower liver gaurav n are noted. PANCREAS: No significant abnormality is seen. SPLEEN: No significant abnormality is seen. ADRENALS: No significant abnormality is seen. KIDNEYS: No significant abnormality is seen. BOWEL: Appendix is not distinctly visualized and presumed surgically absent. The oral contrast reache s level of distal ileum but not terminal ileum. There is some fecal prominence in the right colon. Th ere is no suspicious small or large bowel dilatation identified. UTERUS/ADNEXA: Uterus is anteverted in shape and normal in size. There is oval 2.6 x 1.9 cm lesion in left ovary felt to reflect small ovarian cyst or prominent follicle. This could be confirmed with pe lvic ultrasound if desired. LYMPH NODES: No greater than 1cm abdominal or pelvic lymph nodes are appreciated. OSSEOUS STRUCTURES: No significant abnormality is seen. OTHER: Superficial tissue shows no worrisome focal fluid collection. IMPRESSION: No significant acute finding is seen to account for patient's clinical symptoms. Appendix is surgically absent per discussion with ordering physician.
== END | disposition home or self-care (01) ==
LOC: RADCTMAIN 10:47
PROVIDERS: ATTEND Family Medicine
DX: R10.31 Right lower quadrant pain (principal)
CPT/HCPCS: 80053; 82150; 83690; 85027; 86038; 74177; 36415; Q9967

== ENCOUNTER 2017-07-19 10:37 | Emergency (ER) | payer OTHER ==
--- NOTE | 2017-07-19 11:15 | ED ---
General Adult HPI - General Chief complaint: Back Pain/Injury Stated complaint: Back pain Time Seen by Provider: 07/19/17 11:01 Source: patient, RN notes reviewed Mode of arrival: wheelchair Limitations: no limitations - History of Present Illness Initial comments: Patient is a pleasant 36-year-old female presenting to the emergency Department with low back pain. Onset of symptoms was yesterday. Onset was during doing dishes. Discomfort has been steady since that time. Discomfort increases with movement and position changes. No history of chronic lower back pain. No weakness. No incontinence or retention of bowel or bladder. No abdominal pain. - Related Data Home Medications Medication Instructions Recorded Confirmed Albuterol Inhaler [Ventolin Hfa 1 - 2 puff INHALATION RT-Q6H PRN 11/29/16 Inhaler] Budesonide-Formot 160-4.5 Mcg 2 puff INHALATION RT-BID PRN 11/29/16 07/19/17 [Symbicort 160-4.5 Mcg Inhaler] Previous Rx's Medication Instructions Recorded Hydrocodone/Acetaminophen [Morgan 1 each PO Q4HR PRN #15 tab 07/19/17 5-325] Allergies Allergy/AdvReac Type Severity Reaction Status Date / Time amoxicillin [Amoxicillin] Allergy Anaphylaxis Verified 07/19/17 11:27 aspirin Allergy Anaphylaxis Verified 07/19/17 11:27 Penicillins Allergy Anaphylaxis Verified 07/19/17 11:27 Review of Systems ROS Statement: Those systems with pertinent positive or pertinent negative responses have been documented in the HPI. ROS Other: All systems not noted in ROS Statement are negative. Constitutional: Denies: fever Eyes: Denies: eye pain ENT: Denies: ear pain Respiratory: Denies: cough Cardiovascular: Denies: chest pain Endocrine: Denies: fatigue Gastrointestinal: Denies: abdominal pain, vomiting Genitourinary: Denies: dysuria Musculoskeletal: Reports: back pain Skin: Denies: rash Neurological: Denies: weakness, paresthesias Past Medical History Past Medical History: Asthma Additional Past Medical History / Comment(s): migraines History of Any Multi-Drug Resistant Organisms: None Reported Past Surgical History: Appendectomy, Cholecystectomy, Orthopedic Surgery, Tonsillectomy Additional Past Surgical History / Comment(s): dental surgery Past Psychological History: Anxiety, Depression Smoking Status: Current every day smoker Past Alcohol Use History: None Reported Past Drug Use History: None Reported General Exam Limitations: no limitations General appearance: alert, in no apparent distress, obese Head exam: Present: atraumatic Eye exam: Present: normal appearance Neck exam: Present: normal inspection Respiratory exam: Present: normal lung sounds bilaterally Cardiovascular Exam: Present: regular rate, normal rhythm Expanded Peripheral pulses: 2+: Posterior Tibialis (R), Posterior Tibialis (L) GI/Abdominal exam: Present: soft. Absent: distended, tenderness, pulsatile mass Extremities exam: Present: normal inspection Back exam: Present: vertebral tenderness (Mid lumbar region) Neurological exam: Present: alert. Absent: motor sensory deficit Psychiatric exam: Present: normal affect, normal mood Skin exam: Present: normal color Course Vital Signs 07/19/17 07/19/17 10:55 12:19 Temperature 98 F Pulse Rate 92 69 Respiratory 18 18 Rate Blood Pressure 128/75 108/58 O2 Sat by Pulse 96 100 Oximetry Medical Decision Making - Medical Decision Making Patient reevaluated and updated. Patient was advised to consider taking Motrin as well. - Lab Data Lab Results 07/19/17 Range/Units 11:10 Urine HCG, Qual Not Detected (Not Detectd) - Radiology Data Radiology results: image reviewed (Lumbar x-rays show no acute process) Disposition Clinical Impression: Low back pain Disposition: HOME SELF-CARE Condition: Stable Instructions: Acute Low Back Pain (ED) Additional Instructions: Please follow-up to in the next couple days for recheck. Return for fever, weakness, loss of control of bowel or bladder, worsening symptoms or other concerns. Prescriptions: Hydrocodone/Acetaminophen [Morgan 5-325] 1 each PO Q4HR PRN #15 tab PRN Reason: Pain Referrals: Lupe Wick MD [Primary Care Provider] - 1-2 days Time of Disposition: 12:30
--- NOTE | 2017-07-19 12:04 | XR ---
EXAM TYPE: LUMBAR SPINE X RAY SERIES COMPARISON: NONE HISTORY: Low back pain TECHNIQUE: Three views are submitted. FINDINGS: Alignment is anatomic. The pedicles are intact. The transverse processes are intact. There is no spondylolisthesis. Surgical clips in the gallbladder fossa. Hypertrophic changes at the thoracolumba r junction and at L4. IMPRESSION: 1. No acute process.
[2017-07-19] MEDS ORDERED: KETOROLAC 60 MG/2 ML VIAL IM STA (12:27)
[2017-07-19] MEDS ORDERED: MORPHINE SULFATE 5 MG/ML SYRINGE IM STA (12:27)
[2017-07-19 23:25] VITALS: BP 108/58; PULSE 69; RESP 18; TEMP 98
== END 2017-07-19 12:40 | disposition home or self-care (01) ==
LOC: EC 10:37
DX: M54.5 Low back pain (principal); F17.200 Nicotine dependence, unspecified, uncomplicated; Z88.0 Allergy status to penicillin; Z88.6 Allergy status to analgesic agent; Z98.890 Other specified postprocedural states
CPT/HCPCS: 81025; 72100; 99284; 96372 ×2; J1885; J2274

== ENCOUNTER → 2017-09-26 | Outpatient (CLI) | payer OTHER ==
--- NOTE | 2017-09-26 16:01 | US ---
EXAMINATION TYPE: US OB <=14 wks transvag DATE OF EXAM: 09/26/2017 COMPARISON: NONE CLINICAL HISTORY: O99.211 OBESITY AFFECTING IN FIRST TRIMESTER. For dates EXAM PERFORMED: Transvaginal (TV) and Transabdominal (TA) EXAM MEASUREMENTS: GESTATIONAL AGE / DATING Physician Established: (10 weeks/0 days) EDC: 04/24/2018 Dates by LMP: (10 weeks/0 days) EDC: 04/24/2018 Dates by First Scan: This is 1st scan Dates by Current Scan for: ( 9 weeks/0 days) EDC: 05/01/2018 MATERNAL ANATOMY Uterus: 8.7 x 5.7 x 6.4cm, anteverted, 1.2cm nabothian cyst Right Ovary: 2.8 x 1.8 x 1.2cm Left Ovary: 2.3 x 1.1 x 1.2cm Post CDS / Adnexa: wnl Presence of free fluid: no Presence of corpus luteal cyst: not seen Presence of subchorionic bleed: no GESTATION / SURVEY CRL: 2.3cm (9 weeks/0 days) Yolk Sac (normal less than 6mm): 3.8mm Heart Rate: 168 bpm Rhythm: Normal IUP: Viable IUP Date of LMP: 07/18/2017 Beta HcG (if available): Not available at time of exam Viable single IUP measuring 9 weeks 0 days with a heart rate of 168bpm and an estimated delivery date of 05/01/2018. IMPRESSION: Single intrauterine gestation estimated at 9 weeks 0 days gestation based on the crown-rump length. C ardiac activity measures 160 bpm. Calculated EDC is 05/01/2018 based on the current crown-rump length .
== END | disposition home or self-care (01) ==
LOC: RADUSWWP 15:00
PROVIDERS: ATTEND Obstetrics & Gynecology
DX: O99.211 Obesity complicating pregnancy, first trimester (principal); Z3A.09 9 weeks gestation of pregnancy
CPT/HCPCS: 76801; 76817

== ENCOUNTER 2017-10-03 12:19 | Emergency (ER) | payer OTHER ==
[2017-10-03] MEDS ORDERED: SODIUM CHLORIDE 0.9% 500 ML IV ONE (12:31)
[2017-10-03 12:59] LABS: Amorphous Sediment,Urine Rare /hpf; Appearance,Urine Cloudy (Clear); Bilirubin,Urine Negative (Negative); Blood,Urine Moderate (Negative); Color,Urine Yellow; Glucose,Urine (UA) Negative (Negative); Ketones,Urine Negative (Negative); Leukocyte Esterase,Urine Trace (Negative); Mucus,Urine Rare /hpf; Nitrite,Urine Negative (Negative); Protein,Urine Negative (Negative); Specific Gravity,Urine 1.013 (1.001-1.035); Squamous Epithelial Cell,Urine 1 /hpf (0-4); Urobilinogen,Urine <2.0 mg/dL (<2.0); WBC,Urine 4 /hpf (0-5)
[2017-10-03 13:17] LABS: Partial Thromboplastin Time 25.1 sec (22.0-30.0); Prothrombin Time 9.8 sec (9.0-12.0)
[2017-10-03 13:18] LABS: Basophils # (A) 0.1 k/uL (0-0.2); Basophils % (A) 1 %; Eosinophils # (A) 0.3 k/uL (0-0.7); Eosinophils % (A) 4 %; HCT 38.5 % (34.0-46.0); HGB 13.6 gm/dL (11.4-16.0); Lymphocytes # (A) 2.2 k/uL (1.0-4.8); Lymphocytes % (A) 28 %; MCH 31.4 pg (25.0-35.0); MCHC 35.5 g/dL (31.0-37.0); MCV 88.6 fL (80.0-100.0); Mean Platelet Volume 7.3; Monocytes # (A) 0.5 k/uL (0-1.0); Monocytes % (A) 7 %; Neutrophils # (A) 4.7 k/uL (1.3-7.7); Neutrophils % (A) 59 %; Platelet Count 223 k/uL (150-450); RBC 4.34 m/uL (3.80-5.40); RDW 12.5 % (11.5-15.5)
[2017-10-03] MEDS ORDERED: ACETAMINOPHEN IV (For NPO) 1,000 MG in EMPTY BAG 1 BAG IVPB STA (13:24)
--- NOTE | 2017-10-03 13:33 | ED ---
General Adult HPI - General Chief complaint: Vaginal Bleeding Stated complaint: 10 weeks preg-vaginal bleeding Time Seen by Provider: 10/03/17 12:31 Source: patient, RN notes reviewed, old records reviewed Mode of arrival: ambulatory Limitations: no limitations - History of Present Illness Initial comments: This is a 36-year-old female the ER for evaluation regards to vaginal bleeding. Patient's known positive . Patient is she thinks on 10 weeks . She has had some abdominal pain with vaginal bleeding, dark blood from her vagina or drugs tolerated liquid for vagina. Brown. Patient denies feelings of lightheadedness dizziness weakness. She has a history of 1 prior miscarriage - Related Data Home Medications Medication Instructions Recorded Confirmed Albuterol Inhaler [Ventolin Hfa 1 - 2 puff INHALATION RT-Q6H PRN 11/29/16 Inhaler] Budesonide-Formot 160-4.5 Mcg 2 puff INHALATION RT-BID PRN 11/29/16 10/03/17 [Symbicort 160-4.5 Mcg Inhaler] Xqk-Ysam-Utdov Acid 1 cap PO DAILY 10/03/17 10/03/17 [-U Capsule (formulary)] Allergies Allergy/AdvReac Type Severity Reaction Status Date / Time amoxicillin [Amoxicillin] Allergy Anaphylaxis Verified 10/03/17 12:52 aspirin Allergy Anaphylaxis Verified 10/03/17 12:52 Penicillins Allergy Anaphylaxis Verified 10/03/17 12:52 Review of Systems ROS Statement: Those systems with pertinent positive or pertinent negative responses have been documented in the HPI. ROS Other: All systems not noted in ROS Statement are negative. Past Medical History Past Medical History: Asthma Additional Past Medical History / Comment(s): migraines History of Any Multi-Drug Resistant Organisms: None Reported Past Surgical History: Appendectomy, Cholecystectomy, Orthopedic Surgery, Tonsillectomy Additional Past Surgical History / Comment(s): dental surgery Past Psychological History: Anxiety, Depression Smoking Status: Current every day smoker Past Alcohol Use History: None Reported Past Drug Use History: None Reported General Exam Limitations: no limitations General appearance: alert, in no apparent distress Head exam: Present: atraumatic, normocephalic, normal inspection Eye exam: Present: normal appearance, PERRL, EOMI. Absent: scleral icterus, conjunctival injection, periorbital swelling ENT exam: Present: normal exam, mucous membranes moist Neck exam: Present: normal inspection. Absent: tenderness, meningismus, lymphadenopathy Respiratory exam: Present: normal lung sounds bilaterally. Absent: respiratory distress, wheezes, rales, rhonchi, stridor Cardiovascular Exam: Present: regular rate, normal rhythm, normal heart sounds. Absent: systolic murmur, diastolic murmur, rubs, gallop, clicks GI/Abdominal exam: Present: soft, normal bowel sounds. Absent: distended, tenderness, guarding, rebound, rigid Extremities exam: Present: normal inspection, full ROM, normal capillary refill. Absent: tenderness, pedal edema, joint swelling, calf tenderness Back exam: Present: normal inspection Neurological exam: Present: alert, oriented X3, CN II-XII intact Psychiatric exam: Present: normal affect, normal mood Skin exam: Present: warm, dry, intact, normal color. Absent: rash Course Vital Signs 10/03/17 10/03/17 12:23 12:59 Temperature 98.2 F Pulse Rate 100 79 Respiratory 20 18 Rate Blood Pressure 114/90 124/60 O2 Sat by Pulse 99 100 Oximetry - Reevaluation(s) Reevaluation #1: 10/03/17 14:38 Patient not currently having any pain or bleeding Medical Decision Making - Medical Decision Making 36 female the ER with vaginal bleeding during first trimester, threatened miscarriage. Ultrasound is normal, patient will follow up on an outpatient basis as directed - Lab Data Result diagrams: 10/03/17 12:50 Lab Results 10/03/17 10/03/17 10/03/17 Range/Units 12:39 12:50 12:50 WBC 8.0 (3.8-10.6) k/uL RBC 4.34 (3.80-5.40) m/uL Hgb 13.6 (11.4-16.0) gm/dL Hct 38.5 (34.0-46.0) % MCV 88.6 (80.0-100.0) fL MCH 31.4 (25.0-35.0) pg MCHC 35.5 (31.0-37.0) g/dL RDW 12.5 (11.5-15.5) % Plt Count 223 (150-450) k/uL Neutrophils % 59 % Lymphocytes % 28 % Monocytes % 7 % Eosinophils % 4 % Basophils % 1 % Neutrophils # 4.7 (1.3-7.7) k/uL Lymphocytes # 2.2 (1.0-4.8) k/uL Monocytes # 0.5 (0-1.0) k/uL Eosinophils # 0.3 (0-0.7) k/uL Basophils # 0.1 (0-0.2) k/uL PT (9.0-12.0) sec INR (<1.2) APTT (22.0-30.0) sec HCG, Quant mIU/mL Urine Color Yellow Urine Appearance Cloudy H (Clear) Urine pH 7.0 (5.0-8.0) Ur Specific [place] 1.013 (1.001-1.035) Urine Protein Negative (Negative) Urine Glucose (UA) Negative (Negative) Urine Ketones Negative (Negative) Urine Blood Moderate H (Negative) Urine Nitrite Negative (Negative) Urine Bilirubin Negative (Negative) Urine Urobilinogen <2.0 (<2.0) mg/dL Ur Leukocyte Esterase Trace H (Negative) Urine WBC 4 (0-5) /hpf Ur Squamous Epith Cells 1 (0-4) /hpf Amorphous Sediment Rare H (None) /hpf Urine Mucus Rare H (None) /hpf Blood Type A Positive Blood Type Recheck No 10/03/17 10/03/17 Range/Units 12:50 12:50 WBC (3.8-10.6) k/uL RBC (3.80-5.40) m/uL Hgb (11.4-16.0) gm/dL Hct (34.0-46.0) % MCV (80.0-100.0) fL MCH (25.0-35.0) pg MCHC (31.0-37.0) g/dL RDW (11.5-15.5) % Plt Count (150-450) k/uL Neutrophils % % Lymphocytes % % Monocytes % % Eosinophils % % Basophils % % Neutrophils # (1.3-7.7) k/uL Lymphocytes # (1.0-4.8) k/uL Monocytes # (0-1.0) k/uL Eosinophils # (0-0.7) k/uL Basophils # (0-0.2) k/uL PT 9.8 (9.0-12.0) sec INR 1.0 (<1.2) APTT 25.1 (22.0-30.0) sec HCG, Quant 23773.8 mIU/mL Urine Color Urine Appearance (Clear) Urine pH (5.0-8.0) Ur Specific [place] (1.001-1.035) Urine Protein (Negative) Urine Glucose (UA) (Negative) Urine Ketones (Negative) Urine Blood (Negative) Urine Nitrite (Negative) Urine Bilirubin (Negative) Urine Urobilinogen (<2.0) mg/dL Ur Leukocyte Esterase (Negative) Urine WBC (0-5) /hpf Ur Squamous Epith Cells (0-4) /hpf Amorphous Sediment (None) /hpf Urine Mucus (None) /hpf Blood Type Blood Type Recheck - Radiology Data Radiology results: report reviewed (Ultrasound OB shows positive IUP, ultrasound came to bladder is negative), image reviewed Disposition Clinical Impression: Threatened miscarriage Disposition: HOME SELF-CARE Condition: Good Instructions: Threatened Miscarriage (ED), First Trimester Vaginal Bleed (ED) Referrals: Lupe Wick MD [Primary Care Provider] - 1-2 days
--- NOTE | 2017-10-03 15:02 | US ---
EXAMINATION TYPE: US OB <=14 wks transvag DATE OF EXAM: 10/03/2017 COMPARISON: US one week ago. CLINICAL HISTORY: Pain. EXAM PERFORMED: Transabdominal (TA),Transvaginal (TV) added to see baby EXAM MEASUREMENTS: GESTATIONAL AGE / DATING Physician Established: (10 weeks/0 days) EDC: 05/01/18 Dates by LMP: (10 weeks/0 days) EDC: 05/01/18 Dates by First Scan: (10 weeks/0 days) EDC: 05/01/18 Dates by Current Scan for: (10 weeks/1 days) EDC: 04/30/18 MATERNAL ANATOMY Uterus: 9.8 x 6.1 x 5.1cm Right Ovary: 2.1 x 1.3 x 1.3cm Left Ovary: obscured by bowel gas Post CDS / Adnexa: wnl Presence of free fluid: no Presence of corpus luteal cyst: no Presence of subchorionic bleed: no GESTATION / SURVEY CRL: 3.3 (10 weeks/1 days) Yolk Sac (normal less than 6mm): 3mm Heart Rate: 167 bpm Rhythm: Normal IUP: Viable IUP Date of LMP: 07/18/17 Beta HcG (if available): Single live intrauterine gestation is redemonstrated as gestational sac, yolk sac, and pole are once again present. No free fluid is seen in pelvic cul-de-sac. Right ovary is identified. Left ovary is not clearly seen on current study. No suspicious adnexal mas ses are noted. Satisfactory progression from recent ultrasound noted. IMPRESSION: Single live intrauterine gestation redemonstrated. Satisfactory interval growth progression noted. No ultrasound evidence for complication currently.
--- NOTE | 2017-10-03 15:04 | US ---
EXAMINATION TYPE: US kidneys/renal and bladder DATE OF EXAM: 10/03/2017 COMPARISON: CT CLINICAL HISTORY: Pain. EXAM MEASUREMENTS: Right Kidney: 10.6 x 5.0 x 5.7 cm Left Kidney: 10.7 x 5.9 x 5.1 cm Right Kidney: No hydronephrosis or masses seen Left Kidney: No hydronephrosis or masses seen Bladder: not distended, not seen There is no evidence for hydronephrosis at this point in time. No nephrolithiasis is seen. No juanito s are identified. IMPRESSION: No evidence of hydronephrosis or nephrolithiasis. Urinary bladder is nonvisualized due to nondistenti on.
[2017-10-03 15:49] VITALS: BP 119/67; PULSE 98; RESP 20
[2017-10-03 15:54] VITALS: TEMP 97.6
== END 2017-10-03 15:55 | disposition home or self-care (01) ==
LOC: EC 12:19
DX: O20.0 Threatened abortion (principal); O99.331 Smoking (tobacco) complicating pregnancy, first trimester; F17.200 Nicotine dependence, unspecified, uncomplicated; Z3A.10 10 weeks gestation of pregnancy; Z88.0 Allergy status to penicillin; Z88.6 Allergy status to analgesic agent
CPT/HCPCS: 36415; 86900; 86901; 85025; 85610; 85730; 81001; 84702; 87086; 76801; 76817; 76770; 99284; 96365; 96361; J0131

== ENCOUNTER 2017-10-20 09:38 | Emergency (ER) | payer OTHER ==
[2017-10-20 09:41] VITALS: TEMP 97.4
--- NOTE | 2017-10-20 10:06 | ED ---
Female Urogenital HPI - General Chief complaint: Vaginal Bleeding Stated complaint: 13wks preg, bleeding Time Seen by Provider: 10/20/17 09:42 Source: patient, RN notes reviewed Mode of arrival: ambulatory Limitations: no limitations - History of Present Illness Initial comments: This a 37-year-old female presents emergency Department chief complaint of vaginal bleeding. Patient states that she is currently [address] [place]. Patient has been in the emergency Department with similar complaints. She states this is slightly worse on its been. She denies any severe pain. She still states that she is a daily smoker. Patient had prior miscarriage. Patient denies any dysuria or hematuria. Patient denies any back pain. Nausea vomiting diarrhea constipation. Last Menstrual Period: 07/18/17 - Related Data Home Medications Medication Instructions Recorded Confirmed Ged-Wbgr-[place] Acid 1 cap PO DAILY 10/03/17 10/20/17 [-U Capsule (formulary)] Previous Rx's Medication Instructions Recorded Nitrofurantoin Monohyd/M-Cryst 100 mg PO Q12HR #14 cap 10/20/17 [Macrobid] Allergies Allergy/AdvReac Type Severity Reaction Status Date / Time amoxicillin [Amoxicillin] Allergy Anaphylaxis Verified 10/20/17 09:45 aspirin Allergy Anaphylaxis Verified 10/20/17 09:45 Penicillins Allergy Anaphylaxis Verified 10/20/17 09:45 Review of Systems ROS Statement: Those systems with pertinent positive or pertinent negative responses have been documented in the HPI. ROS Other: All systems not noted in ROS Statement are negative. Past Medical History Past Medical History: Asthma Additional Past Medical History / Comment(s): migraines History of Any Multi-Drug Resistant Organisms: None Reported Past Surgical History: Appendectomy, Cholecystectomy, Orthopedic Surgery, Tonsillectomy Additional Past Surgical History / Comment(s): dental surgery Past Psychological History: Anxiety, Depression Smoking Status: Current every day smoker Past Alcohol Use History: None Reported Past Drug Use History: None Reported General Exam Limitations: no limitations General appearance: alert, in no apparent distress Head exam: Present: atraumatic, normocephalic, normal inspection Respiratory exam: Present: normal lung sounds bilaterally. Absent: respiratory distress, wheezes, rales, rhonchi, stridor Cardiovascular Exam: Present: regular rate, normal rhythm, normal heart sounds. Absent: systolic murmur, diastolic murmur, rubs, gallop, clicks GI/Abdominal exam: Present: soft, normal bowel sounds. Absent: distended, tenderness, guarding, rebound, rigid Back exam: Absent: CVA tenderness (R), CVA tenderness (L) Course Vital Signs 10/20/17 09:39 Temperature 97.4 F L Pulse Rate 103 H Respiratory 18 Rate Blood Pressure 123/60 O2 Sat by Pulse 100 Oximetry Medical Decision Making - Medical Decision Making 37-year-old female presented emergency for vaginal bleeding . Patient had several ER visits for similar complaints. She states is slightly worse today. Patient's ultrasound shows prior 12 weeks 4 days ago viable IUP. Patient does have evidence of urinary tract infection patient we treated this time. Return parameters were discussed. She does not require RhoGAM as she is positive blood type. - Lab Data Lab Results 10/20/17 Range/Units 09:46 Urine Color Yellow Urine Appearance Cloudy H (Clear) Urine pH 7.5 (5.0-8.0) Ur Specific [place] 1.011 (1.001-1.035) Urine Protein Trace H (Negative) Urine Glucose (UA) Negative (Negative) Urine Ketones Negative (Negative) Urine Blood Large H (Negative) Urine Nitrite Negative (Negative) Urine Bilirubin Negative (Negative) Urine Urobilinogen <2.0 (<2.0) mg/dL Ur Leukocyte Esterase Trace H (Negative) Urine RBC 6 H (0-5) /hpf Urine WBC 11 H (0-5) /hpf Ur Squamous Epith Cells 9 H (0-4) /hpf Urine Bacteria Moderate H (None) /hpf Urine Mucus Rare H (None) /hpf Disposition Clinical Impression: Threatened miscarriage, UTI (urinary tract infection) Disposition: HOME SELF-CARE Condition: Stable Instructions: Threatened Miscarriage (ED) Additional Instructions: Please return to the Emergency Department if symptoms worsen or any other concerns. Prescriptions: Nitrofurantoin Monohyd/M-Cryst [Macrobid] 100 mg PO Q12HR #14 cap Referrals: Lupe Wick MD [Primary Care Provider] - 1-2 days Time of Disposition: 10:51
[2017-10-20 10:27] LABS: Appearance,Urine Cloudy (Clear); Bacteria,Urine Moderate /hpf; Bilirubin,Urine Negative (Negative); Blood,Urine Large (Negative); Color,Urine Yellow; Glucose,Urine (UA) Negative (Negative); Ketones,Urine Negative (Negative); Leukocyte Esterase,Urine Trace (Negative); Mucus,Urine Rare /hpf; Nitrite,Urine Negative (Negative); PH, Urine 7.5 (5.0-8.0); Protein,Urine Trace (Negative); RBC,Urine 6 /hpf (0-5); Specific Gravity,Urine 1.011 (1.001-1.035); Squamous Epithelial Cell,Urine 9 /hpf (0-4); Urobilinogen,Urine <2.0 mg/dL (<2.0); WBC,Urine 11 /hpf (0-5)
--- NOTE | 2017-10-20 10:47 | US ---
EXAMINATION TYPE: Transabdominal DATE OF EXAM: 10/17/17 COMPARISON: 10/03/2017 CLINICAL HISTORY: Pain. bleeding this am EXAM PERFORMED: Transabdominal (TA) EXAM MEASUREMENTS: GESTATIONAL AGE / DATING Physician Established: (13 weeks/3 days) EDC: 04/24/2018 Dates by LMP: (13 weeks/3 days) EDC: 04/24/2018 Dates by First Scan: (12 weeks/4 days) EDC: 04/30/2018 Dates by Current Scan for: (12 weeks/4 days) EDC: 04/30/2018 MATERNAL ANATOMY Uterus: 12.1 x 9.1 x 9.3 cm Right Ovary: not visualized Left Ovary: not visualized Post CDS / Adnexa: wnl Presence of free fluid: none Presence of subchorionic bleed: none seen GESTATION / SURVEY CRL: 6.2 cm (12 weeks/4 days) Yolk Sac (normal less than 6mm): not seen Heart Rate: 154 bpm Rhythm: Normal IUP: Viable IUP Date of LMP: 07/18/2017 Beta HcG (if available): not available viable IUP that correlates with prior exam. IMPRESSION: 1. Viable intrauterine 12 weeks 4 days with a heart rate of 154 bpm.
[2017-10-20 10:59] VITALS: BP 130/70; PULSE 100; RESP 16
== END 2017-10-20 10:58 | disposition home or self-care (01) ==
LOC: EC 09:38
DX: O23.41 Unspecified infection of urinary tract in pregnancy, first trimester (principal); O20.0 Threatened abortion; O20.9 Hemorrhage in early pregnancy, unspecified; O21.0 Mild hyperemesis gravidarum; O99.331 Smoking (tobacco) complicating pregnancy, first trimester; O99.89 Other specified diseases and conditions complicating pregnancy, childbirth and the puerperium; R19.7 Diarrhea, unspecified; F17.200 Nicotine dependence, unspecified, uncomplicated; Z3A.12 12 weeks gestation of pregnancy; Z88.0 Allergy status to penicillin; Z88.6 Allergy status to analgesic agent; Z90.49 Acquired absence of other specified parts of digestive tract
CPT/HCPCS: 76801; 81001; 87086; 99284

== ENCOUNTER 2017-12-02 14:02 | Emergency (ER) | payer OTHER ==
[2017-12-02 14:08] VITALS: RESP 20; TEMP 98.6
[2017-12-02] MEDS ORDERED: ACETAMINOPHEN TAB 325 MG TAB PO STA (14:55)
--- NOTE | 2017-12-02 14:58 | ED ---
Abdominal Pain HPI - General Chief Complaint: Abdominal Pain Stated Complaint: Abd Pain 19 weeks Time Seen by Provider: 12/02/17 14:31 Source: patient Mode of arrival: ambulatory Limitations: no limitations - History of Present Illness Initial Comments: Patient is a 37-year-old female presenting for abdominal pain. The patient states that this is her first time being and she is [address] Phoenix at outside facility and was instructed to go to [facility] but she came here because she did not have any gas. She admits to abdominal pain which is located in the left lower quadrant started at 6 AM. She states that she has had this pain before but this pain is much more severe in intensity. The pain is intermittent and now constant. It feels a stabbing sensation without radiation or modifying factors. She also denies any nausea/ vomiting/diarrhea fevers or chills. She denies any urinary symptoms as well as vaginal bleeding or discharge. - Related Data Home Medications Medication Instructions Recorded Confirmed [id number] Acid 1 cap PO DAILY 10/03/17 10/20/17 [-U Capsule (formulary)] Previous Rx's Medication Instructions Recorded Nitrofurantoin Monohyd/M-Cryst 100 mg PO Q12HR #14 cap 10/20/17 [Macrobid] Allergies Allergy/AdvReac Type Severity Reaction Status Date / Time amoxicillin [Amoxicillin] Allergy Anaphylaxis Verified 12/02/17 14:08 aspirin Allergy Anaphylaxis Verified 12/02/17 14:08 Penicillins Allergy Anaphylaxis Verified 12/02/17 14:08 Review of Systems ROS Statement: Those systems with pertinent positive or pertinent negative responses have been documented in the HPI. Constitutional: Negative for chills, fatigue and fever. HENT: Negative for congestion. Respiratory: Negative for chest tightness, shortness of breath and wheezing. Negative for cough Cardiovascular: Negative for chest pain and palpitations. Gastrointestinal: Positive for abdominal pain. Negative for abdominal distention , diarrhea, nausea and vomiting. Genitourinary: Negative for dysuria. Negative for vaginal bleeding or discharge Musculoskeletal: Negative for back pain, neck pain and neck stiffness. Skin: Negative for color change. Neurological: Negative for dizziness, speech difficulty, weakness and light- headedness. Psychiatric/Behavioral: Negative for agitation and confusion. The patient is not nervous/anxious. ROS Other: All systems not noted in ROS Statement are negative. Past Medical History Past Medical History: Asthma Additional Past Medical History / Comment(s): migraines History of Any Multi-Drug Resistant Organisms: None Reported Past Surgical History: Appendectomy, Cholecystectomy, Orthopedic Surgery, Tonsillectomy Additional Past Surgical History / Comment(s): dental surgery Past Psychological History: Anxiety, Depression Smoking Status: Current every day smoker Past Alcohol Use History: None Reported Past Drug Use History: None Reported General Exam - General Exam Comments Initial Comments: Constitutional: Pt is oriented to person, place, and time. Pt appears well- developed and well-nourished. No distress. HENT: Head: Normocephalic and atraumatic. Eyes: EOM are normal. Neck: Normal range of motion. Neck supple. Cardiovascular: Normal rate, regular rhythm, S1 normal, S2 normal and normal heart sounds. Exam reveals no gallop and no friction rub. No murmur heard. Pulmonary/Chest: Effort normal and breath sounds normal. No tachypnea and no bradypnea. No respiratory distress. No wheezes or rales noted. Abdominal: Soft. Bowel sounds are normal. Pt exhibits no shifting dullness, no distension, no pulsatile liver, no fluid wave, no abdominal bruit and no ascites. There is no tenderness. There is no rigidity, no rebound, no guarding, no tenderness at McBurney's point and negative Linder's sign. Musculoskeletal: Normal range of motion. Neurological: Pt is alert and oriented to person, place, and time. No cranial nerve deficit. Skin: Skin is warm and dry. No rash noted. Pt is not diaphoretic. No erythema. No pallor. Psychiatric: Pt has a normal mood and affect. Pt behavior is normal. Thought content normal. Limitations: no limitations Course Vital Signs 12/02/17 12/02/17 14:06 17:28 Temperature 98.6 F Pulse Rate 104 H 80 Respiratory 20 20 Rate Blood Pressure 130/60 132/78 O2 Sat by Pulse 98 97 Oximetry Medical Decision Making - Medical Decision Making Laboratory studies showed that there is no evidence of leukocytosis or anemia. Electrolytes are also relatively within normal limits. Urinalysis was noted to be negative for infection and beta hCG was measured at 8639. Transvaginal ultrasound was performed and visualized blood flow to the left ovary an intrauterine measuring 19 weeks 1 day with a heart rate of 149 bpm was noted. Pelvic exam was not completed as the patient was not having any bleeding. Patient was advised to follow-up with the OB doctor the next 1-2 days for which she was agreeable to. Based on physical exam as well as ultrasound, it is felt that there is no emergent pathology as well. Patient was agreeable plan. - Lab Data Result diagrams: 12/02/17 15:15 12/02/17 15:15 Lab Results 12/02/17 12/02/17 12/02/17 Range/Units 15:15 15:15 15:15 WBC 10.4 (3.8-10.6) k/uL RBC 4.24 (3.80-5.40) m/uL Hgb 13.2 (11.4-16.0) gm/dL Hct 38.4 (34.0-46.0) % MCV 90.6 (80.0-100.0) fL MCH 31.1 (25.0-35.0) pg MCHC 34.3 (31.0-37.0) g/dL RDW 13.1 (11.5-15.5) % Plt Count 213 (150-450) k/uL Neutrophils % 70 % Lymphocytes % 19 % Monocytes % 5 % Eosinophils % 3 % Basophils % 0 % Neutrophils # 7.3 (1.3-7.7) k/uL Lymphocytes # 2.0 (1.0-4.8) k/uL Monocytes # 0.6 (0-1.0) k/uL Eosinophils # 0.3 (0-0.7) k/uL Basophils # 0.0 (0-0.2) k/uL Sodium 138 (137-145) mmol/L Potassium 4.2 (3.5-5.1) mmol/L Chloride 107 (98-107) mmol/L Carbon Dioxide 21 L (22-30) mmol/L Anion Gap 10 mmol/L BUN 10 (7-17) mg/dL Creatinine 0.50 L (0.52-1.04) mg/dL Est GFR (CKD-EPI)AfAm >90 (>60 ml/min/1.73 sqM) Est GFR (CKD-EPI)NonAf >90 (>60 ml/min/1.73 sqM) Glucose 82 (74-99) mg/dL Calcium 9.2 (8.4-10.2) mg/dL Magnesium 1.9 (1.6-2.3) mg/dL Total Bilirubin 0.2 (0.2-1.3) mg/dL AST 26 (14-36) U/L ALT 53 H (9-52) U/L Alkaline Phosphatase 48 (38-126) U/L Total Protein 6.0 L (6.3-8.2) g/dL Albumin 3.4 L (3.5-5.0) g/dL HCG, Quant 8639.7 mIU/mL Urine Color Light Yellow Urine Appearance Clear (Clear) Urine pH 5.5 (5.0-8.0) Ur Specific [place] 1.005 (1.001-1.035) Urine Protein Negative (Negative) Urine Glucose (UA) Negative (Negative) Urine Ketones Negative (Negative) Urine Blood Negative (Negative) Urine Nitrite Negative (Negative) Urine Bilirubin Negative (Negative) Urine Urobilinogen <2.0 (<2.0) mg/dL Ur Leukocyte Esterase Negative (Negative) Disposition Clinical Impression: Abdominal pain during intrauterine Disposition: HOME SELF-CARE Condition: Good Instructions: Abdominal Pain in (ED) Is patient prescribed a controlled substance at d/c from ED?: No Referrals: Lupe Wick MD [Primary Care Provider] - 1-2 days Penny Walker DO [Doctor of Osteopathic Medicine] - 1-2 days Time of Disposition: 17:04
[2017-12-02 15:28] LABS: Appearance,Urine Clear (Clear); Bilirubin,Urine Negative (Negative); Blood,Urine Negative (Negative); Color,Urine Light Yellow; Glucose,Urine (UA) Negative (Negative); Ketones,Urine Negative (Negative); Leukocyte Esterase,Urine Negative (Negative); Nitrite,Urine Negative (Negative); PH, Urine 5.5 (5.0-8.0); Protein,Urine Negative (Negative); Specific Gravity,Urine 1.005 (1.001-1.035); Urobilinogen,Urine <2.0 mg/dL (<2.0)
[2017-12-02 15:46] LABS: ALT 53 U/L (9-52); AST 26 U/L (14-36); Albumin 3.4 g/dL (3.5-5.0); Alkaline Phosphatase 48 U/L (38-126); Basophils % (A) 0 %; Blood Urea Nitrogen 10 mg/dL (7-17); Calcium 9.2 mg/dL (8.4-10.2); Chloride 107 mmol/L (98-107); Eosinophils # (A) 0.3 k/uL (0-0.7); Eosinophils % (A) 3 %; Glucose 82 mg/dL (74-99); HCT 38.4 % (34.0-46.0); HGB 13.2 gm/dL (11.4-16.0); Lymphocytes % (A) 19 %; MCH 31.1 pg (25.0-35.0); MCHC 34.3 g/dL (31.0-37.0); MCV 90.6 fL (80.0-100.0); Magnesium 1.9 mg/dL (1.6-2.3); Mean Platelet Volume 7.1; Monocytes # (A) 0.6 k/uL (0-1.0); Monocytes % (A) 5 %; Neutrophils # (A) 7.3 k/uL (1.3-7.7); Neutrophils % (A) 70 %; Platelet Count 213 k/uL (150-450); Potassium 4.2 mmol/L (3.5-5.1); RBC 4.24 m/uL (3.80-5.40); RDW 13.1 % (11.5-15.5); Sodium 138 mmol/L (137-145); Total Bilirubin 0.2 mg/dL (0.2-1.3); WBC 10.4 k/uL (3.8-10.6)
[2017-12-02 16:02] LABS: Anion Gap 10 mmol/L; Carbon Dioxide 21 mmol/L (22-30)
[2017-12-02 16:03] LABS: HCG,Quantitative Serum 8639.7 mIU/mL
--- NOTE | 2017-12-02 16:46 | US ---
EXAMINATION TYPE: US OB >= 14 wk fetus DATE OF EXAM: 12/02/2017 COMPARISON: CLINICAL HISTORY: Pain Lt sharp shooting pain that started today TECHNIQUE: Transabdominal (TA) GESTATIONAL AGE / DATING Physician Established: (19 weeks/4 days) EDC: 04/24/2018 Dates by Current Scan: (19 weeks/1 days) EDC: 04/27/2018 SURVEY IUP: Single PLACENTA: Anterior PREVIA: No Previa REESE: 12.5 cm Normal CERVICAL LENGTH (transabdominal: norm > 3.0cm): 3.4 cm BIOMETRY PRESENTATION: Breech LIE: Longitudinal BPD: 4.5 cm 19 weeks / 3 days HC: 16.4 cm 19 weeks / 1 days AC: 15.1 cm 20 weeks / 2 days FL: 2.9 cm 18 weeks / 6 days ESTIMATED WEIGHT IN GRAMS: 299.4 grams ESTIMATED WEIGHT IN LBS/OZ: 0 lbs. 11 oz. WEIGHT PERCENTAGE BASED ON ESTABLISHED DATES: 44.4% HC/AC: 1.1 Normal FL/AC: 19.0 HEART RATE: 149 bpm RHYTHM: Normal MATERNAL WALL MEASUREMENT: 6.1 cm from skin to anterior uterine wall (if exam limited due to body hab itus). Live single IUP measuring 19 weeks 1 day. Right ovary not seen. Arterial and venous flow seen in le ft ovary. Hypoechoic lesion seen at fundal tip of placenta = 1.9 x 2.4 x 1.3 cm, possible venous la ke Limited exam due to patient body habitus IMPRESSION: Limited exam. Single viable intrauterine corresponding to an ultrasound age 19 weeks 1 day with estimated date of delivery 04/27/2018, additional findings above
[2017-12-02 17:29] VITALS: BP 132/78; PULSE 80
== END 2017-12-02 17:29 | disposition home or self-care (01) ==
LOC: EC 14:02
DX: O26.892 Other specified pregnancy related conditions, second trimester (principal); O99.332 Smoking (tobacco) complicating pregnancy, second trimester; R10.32 Left lower quadrant pain; Z79.899 Other long term (current) drug therapy; F17.200 Nicotine dependence, unspecified, uncomplicated; Z3A.19 19 weeks gestation of pregnancy; Z88.0 Allergy status to penicillin; Z88.6 Allergy status to analgesic agent
CPT/HCPCS: 36415; 76805; 80053; 81003; 83735; 84702; 85025; 87086; 93976; 99284

== ENCOUNTER → 2018-01-10 | Outpatient (CLI) | payer OTHER ==
--- NOTE | 2018-01-10 18:27 | EEG ---
ELECTROENCEPHALOGRAM REPORT DATE OF EE01/10/2018 OUTPATIENT ELECTROENCEPHALOGRAPHIC EXAMINATION REPORT: INDICATION FOR EXAMINATION: This patient is a 37-year-old female being evaluated for seizure disorder. The patient is currently 6 months and has history of seizures 15 years ago. EEG for further evaluation. AGE: [age]. EEG FINDINGS: A routine 21-channel awake digital EEG recording was accomplished utilizing the 10-20 international system with bipolar and referential montages. The background activity in the most alert resting state consists of a low to medium amplitude, fairly well developed and well sustained 7-8 Hz activity over the posterior head regions. This posterior rhythm attenuates to eye opening. There is a small amount of low amplitude 18-20 Hz beta activity seen maximally over the anterior head regions. Muscle and movement artifact was observed on a few occasions during the tracing. Hyperventilation was not performed. Photic stimulation at flash frequencies of 2-30 Hz produced a good symmetrical occipital driving response. Towards the latter portion of the tracing, the patient does drift into spontaneous drowsiness. No epileptiform discharges were seen. IMPRESSION: This EEG is within normal limits for the patient's age. The EEG failed to reveal any focal, lateralized, or epileptiform abnormalities. Clinical correlation is recommended. MMODL / IJN: [id number] /
== END | disposition home or self-care (01) ==
LOC: NEUROMAIN 12:55
PROVIDERS: ATTEND Psychiatry & Neurology Neurology
DX: G40.909 Epilepsy, unspecified, not intractable, without status epilepticus (principal)
CPT/HCPCS: 95819

== ENCOUNTER 2018-02-25 02:04 | Emergency (ER) | payer OTHER ==
[2018-02-25 02:10] VITALS: TEMP 97.7
--- NOTE | 2018-02-25 02:12 | ED ---
General Adult HPI - General Chief complaint: Upper Respiratory Infection Stated complaint: KAYLYN,cough Time Seen by Provider: 02/25/18 02:11 Source: patient Mode of arrival: wheelchair Limitations: no limitations - History of Present Illness Initial comments: 37-year-old female at 31 weeks gestation who presents the ED today for evaluation of cough. Patient reports that for the past few days she has had a nonproductive cough and throughout the evening on Monday she developed pain in her lower ribs bilaterally. Patient reports that she does have a history of asthma, she has an every day cigarette smoker, she has noted that she's been wheezing for a few days. She reports that this evening she developed the pain in her bilateral ribs, worse on the right than the left, pain is worse with deep inspiration or coughing. Pain improved somewhat with rest. Patient denies any exertional chest pain, palpitations, lightheadedness, diaphoresis any near-syncope. Patient has no her personal history of cardiac disease. She has no history of DVT or PE. She has no known family history of early cardiac disease, or clotting disorder. She is currently , does smoke. denies any associated fevers, chills, change in bowel or bladder habits. Patient reports that she's experienced nausea throughout this and now has severe acid reflux which she manages with diet and eating small meals. This is unchanged recently. - Related Data Home Medications Medication Instructions Recorded Confirmed [id number] Acid 1 cap PO DAILY 10/03/17 10/20/17 [-U Capsule (formulary)] Previous Rx's Medication Instructions Recorded Nitrofurantoin Monohyd/M-Cryst 100 mg PO Q12HR #14 cap 10/20/17 [Macrobid] Albuterol Nebulized [Ventolin 2.5 mg INHALATION Q4H #30 nebu 02/25/18 Nebulized] Allergies Allergy/AdvReac Type Severity Reaction Status Date / Time amoxicillin [Amoxicillin] Allergy Anaphylaxis Verified 02/25/18 02:09 aspirin Allergy Anaphylaxis Verified 02/25/18 02:09 Penicillins Allergy Anaphylaxis Verified 02/25/18 02:09 Review of Systems ROS Statement: Those systems with pertinent positive or pertinent negative responses have been documented in the HPI. ROS Other: All systems not noted in ROS Statement are negative. Past Medical History Past Medical History: Asthma, Seizure Disorder Additional Past Medical History / Comment(s): migraines History of Any Multi-Drug Resistant Organisms: None Reported Past Surgical History: Appendectomy, Cholecystectomy, Orthopedic Surgery, Tonsillectomy Additional Past Surgical History / Comment(s): dental surgery Past Psychological History: Anxiety, Depression Smoking Status: Current every day smoker Past Alcohol Use History: None Reported Past Drug Use History: None Reported General Exam Limitations: no limitations General appearance: alert, in no apparent distress Head exam: Present: atraumatic, normocephalic Eye exam: Present: normal appearance, PERRL ENT exam: Present: normal exam Neck exam: Present: normal inspection, full ROM Respiratory exam: Present: wheezes. Absent: respiratory distress Cardiovascular Exam: Present: tachycardia GI/Abdominal exam: Present: soft, distended (Gravid uterus) Extremities exam: Present: full ROM. Absent: pedal edema Back exam: Present: normal inspection Neurological exam: Present: alert, oriented X3 Psychiatric exam: Present: normal affect, normal mood Skin exam: Present: warm, dry, intact, normal color Course Vital Signs 02/25/18 02/25/18 02/25/18 02:05 02:46 02:53 Temperature 97.7 F Pulse Rate 101 H 100 104 H Respiratory 19 Rate Blood Pressure 114/75 O2 Sat by Pulse 98 Oximetry Medical Decision Making - Medical Decision Making Patient was seen and evaluated, history is obtained from the patient Maternal- medicine nurses at bedside, obtained heart tones which were good and within normal range Patient with a nonproductive cough and pleuritic chest pain worsening today. Patient noted to be tachycardic with no hypoxia. Labs and imaging including a chest x-ray were ordered. I discussed with the patient that she is very high risk for pulmonary embolism considering that she smokes and is currently . I will order a d-dimer, I advised the patient that if this is positive we will have to pursue a CT to evaluate for possible pulmonary embolism. Patient understands and is agreeable to this plan. Breathing treatment was ordered, patient was noted to be wheezing, worse on the left than the right. Labs reveal mild leukocytosis as well as an elevated d-dimer Chest x-ray with no acute findings Chest x-ray and lab results were discussed with the patient, risks and benefits of CT including the definitive diagnosis or exclusion of a pulmonary embolism versus the risk of missed pulmonary embolism were discussed with the patient. I advised the patient that the fetus cannot be shielded from the radiation from a single PE. There is concerned that exposure to radiation increase his risk of certain cancers in the long-term., However risk of a missed pulmonary embolism does include from both the patient and her fetus. At this time the patient is agreeable to pursuing a CT pulmonary embolus. She with no acute pathology, no evidence of PE, no evidence of pneumonia At this time I suspect the patient is suffering from a viral upper respiratory tract infection which is exacerbating her asthma, this is also exacerbated by her decision to smoke cigarettes Patient has a nebulizer at home but is out of albuterol, I will prescribe albuterol Patient remains hemodynamically stable, afebrile, mildly tachycardic which is a normal finding in . This time I feel the patient is stable for discharge home. She has established follow-up with her devulcanizer loader on Monday of this week. - Lab Data Result diagrams: 02/25/18 02:55 02/25/18 02:55 Lab Results 02/25/18 02/25/18 02/25/18 Range/Units 02:55 02:55 02:55 WBC 12.2 H (3.8-10.6) k/uL RBC 4.10 (3.80-5.40) m/uL Hgb 12.8 (11.4-16.0) gm/dL Hct 37.3 (34.0-46.0) % MCV 90.9 (80.0-100.0) fL MCH 31.1 (25.0-35.0) pg MCHC 34.3 (31.0-37.0) g/dL RDW 12.9 (11.5-15.5) % Plt Count 219 (150-450) k/uL Neutrophils % 65 % Lymphocytes % 23 % Monocytes % 7 % Eosinophils % 3 % Basophils % 1 % Neutrophils # 7.9 H (1.3-7.7) k/uL Lymphocytes # 2.8 (1.0-4.8) k/uL Monocytes # 0.9 (0-1.0) k/uL Eosinophils # 0.4 (0-0.7) k/uL Basophils # 0.1 (0-0.2) k/uL D-Dimer 0.81 H (<0.60) mg/L FEU Sodium 137 (137-145) mmol/L Potassium 3.9 (3.5-5.1) mmol/L Chloride 110 H (98-107) mmol/L Carbon Dioxide 22 (22-30) mmol/L Anion Gap 5 mmol/L BUN 5 L (7-17) mg/dL Creatinine 0.51 L (0.52-1.04) mg/dL Est GFR (CKD-EPI)AfAm >90 (>60 ml/min/1.73 sqM) Est GFR (CKD-EPI)NonAf >90 (>60 ml/min/1.73 sqM) Glucose 101 H (74-99) mg/dL Calcium 8.9 (8.4-10.2) mg/dL Urine Color Urine Appearance (Clear) Urine pH (5.0-8.0) Ur Specific [place] (1.001-1.035) Urine Protein (Negative) Urine Glucose (UA) (Negative) Urine Ketones (Negative) Urine Blood (Negative) Urine Nitrite (Negative) Urine Bilirubin (Negative) Urine Urobilinogen (<2.0) mg/dL Ur Leukocyte Esterase (Negative) 02/25/18 Range/Units 02:55 WBC (3.8-10.6) k/uL RBC (3.80-5.40) m/uL Hgb (11.4-16.0) gm/dL Hct (34.0-46.0) % MCV (80.0-100.0) fL MCH (25.0-35.0) pg MCHC (31.0-37.0) g/dL RDW (11.5-15.5) % Plt Count (150-450) k/uL Neutrophils % % Lymphocytes % % Monocytes % % Eosinophils % % Basophils % % Neutrophils # (1.3-7.7) k/uL Lymphocytes # (1.0-4.8) k/uL Monocytes # (0-1.0) k/uL Eosinophils # (0-0.7) k/uL Basophils # (0-0.2) k/uL D-Dimer (<0.60) mg/L FEU Sodium (137-145) mmol/L Potassium (3.5-5.1) mmol/L Chloride (98-107) mmol/L Carbon Dioxide (22-30) mmol/L Anion Gap mmol/L BUN (7-17) mg/dL Creatinine (0.52-1.04) mg/dL Est GFR (CKD-EPI)AfAm (>60 ml/min/1.73 sqM) Est GFR (CKD-EPI)NonAf (>60 ml/min/1.73 sqM) Glucose (74-99) mg/dL Calcium (8.4-10.2) mg/dL Urine Color Yellow Urine Appearance Clear (Clear) Urine pH 6.5 (5.0-8.0) Ur Specific [place] 1.008 (1.001-1.035) Urine Protein Negative (Negative) Urine Glucose (UA) Negative (Negative) Urine Ketones Negative (Negative) Urine Blood Negative (Negative) Urine Nitrite Negative (Negative) Urine Bilirubin Negative (Negative) Urine Urobilinogen <2.0 (<2.0) mg/dL Ur Leukocyte Esterase Negative (Negative) Disposition Clinical Impression: Upper respiratory infection Disposition: HOME SELF-CARE Condition: Good Instructions: Upper Respiratory Infection (ED) Prescriptions: Albuterol Nebulized [Ventolin Nebulized] 2.5 mg INHALATION Q4H #30 nebu Is patient prescribed a controlled substance at d/c from ED?: No Referrals: Lupe Wick MD [Primary Care Provider] - 1-2 days Time of Disposition: 04:36
[2018-02-25] MEDS ORDERED: ALBUTEROL NEBULIZED 2.5 MG/3 ML INHALATION STA (02:34)
[2018-02-25] MEDS ORDERED: SODIUM CHLORIDE 0.9% 500 ML IV STA (02:34)
[2018-02-25 03:05] LABS: Appearance,Urine Clear (Clear); Basophils # (A) 0.1 k/uL (0-0.2); Basophils % (A) 1 %; Bilirubin,Urine Negative (Negative); Blood,Urine Negative (Negative); Color,Urine Yellow; Eosinophils # (A) 0.4 k/uL (0-0.7); Eosinophils % (A) 3 %; Glucose,Urine (UA) Negative (Negative); HCT 37.3 % (34.0-46.0); HGB 12.8 gm/dL (11.4-16.0); Ketones,Urine Negative (Negative); Leukocyte Esterase,Urine Negative (Negative); Lymphocytes # (A) 2.8 k/uL (1.0-4.8); Lymphocytes % (A) 23 %; MCH 31.1 pg (25.0-35.0); MCHC 34.3 g/dL (31.0-37.0); MCV 90.9 fL (80.0-100.0); Mean Platelet Volume 7.6; Monocytes # (A) 0.9 k/uL (0-1.0); Monocytes % (A) 7 %; Neutrophils # (A) 7.9 k/uL (1.3-7.7); Neutrophils % (A) 65 %; Nitrite,Urine Negative (Negative); PH, Urine 6.5 (5.0-8.0); Platelet Count 219 k/uL (150-450); Protein,Urine Negative (Negative); RDW 12.9 % (11.5-15.5); Specific Gravity,Urine 1.008 (1.001-1.035); Urobilinogen,Urine <2.0 mg/dL (<2.0); WBC 12.2 k/uL (3.8-10.6)
[2018-02-25 03:14] LABS: Anion Gap 5 mmol/L; Blood Urea Nitrogen 5 mg/dL (7-17); Calcium 8.9 mg/dL (8.4-10.2); Carbon Dioxide 22 mmol/L (22-30); Chloride 110 mmol/L (98-107); Glucose 101 mg/dL (74-99); Potassium 3.9 mmol/L (3.5-5.1); Sodium 137 mmol/L (137-145)
--- NOTE | 2018-02-25 03:17 | XR ---
EXAMINATION TYPE: XR chest 2V DATE OF EXAM: 02/25/2018 COMPARISON: 05/17/2016 HISTORY: Cough and congestion TECHNIQUE: Frontal and lateral views of the chest are obtained. FINDINGS: Heart and mediastinum are normal. Lungs are clear. Diaphragm is normal. Bony thorax appear s normal. IMPRESSION: Normal chest. No change.
--- NOTE | 2018-02-25 04:21 | CT ---
EXAMINATION TYPE: CT chest angio for PE DATE OF EXAM: 02/25/2018 COMPARISON: None HISTORY: r/o pe CT DLP: 501 mGycm Automated exposure control for dose reduction was used. CONTRAST: CT Chest for pulmonary embolism performed with with IV Contrast, patient injected with 80 mL of Isovu e 370. FINDINGS: There are 3-D post processed images. The lungs are clear of infiltrate. There is no pleural effusion. There is no pericardial effusion. Th ere is normal contrast opacification of the pulmonary arteries. I see no filling defects. There is no mediastinal adenopathy. Thoracic aorta shows no evidence of aneurysm or dissection. There are no hil ar masses. The bony thorax appears intact. IMPRESSION: Negative CT angiogram of the chest. No evidence of pulmonary embolism.
[2018-02-25 04:56] VITALS: BP 108/63; PULSE 71; RESP 18
== END 2018-02-25 04:54 | disposition home or self-care (01) ==
LOC: EC 02:04
DX: O99.513 Diseases of the respiratory system complicating pregnancy, third trimester (principal); J06.9 Acute upper respiratory infection, unspecified; O99.89 Other specified diseases and conditions complicating pregnancy, childbirth and the puerperium; R00.0 Tachycardia, unspecified; R07.81 Pleurodynia; R79.1 Abnormal coagulation profile; O99.113 Other diseases of the blood and blood-forming organs and certain disorders involving the immune mechanism complicating pregnancy, third trimester; D72.829 Elevated white blood cell count, unspecified; O99.333 Smoking (tobacco) complicating pregnancy, third trimester; F17.200 Nicotine dependence, unspecified, uncomplicated; Z3A.31 31 weeks gestation of pregnancy; Z88.0 Allergy status to penicillin; Z88.6 Allergy status to analgesic agent
CPT/HCPCS: 36415; 94640; 85379; 80048; 85025; 81003; 87086; 71046; 71275; 99284; Q9967

== ENCOUNTER 2018-03-04 15:30 | Outpatient (CLI) | payer OTHER ==
[2018-03-04 16:36] VITALS: BP 131/75; PULSE 93; RESP 18; TEMP 98.6
--- NOTE | 2018-04-14 09:31 | P.MSEPDOC ---
Presenting Problems - Arrival Data Date of Arrival on Unit: 03/04/18 Time of Arrival on Unit: 15:30 Mode of Transport: Ambulatory - Complaint OB-Reason for Admission/Chief Complaint: Pain, Other Comment: swelling in lower legs. uncomfortable Medical History - Information : 2 Para: 0 Term: 0 : 0 Abortions: Spontaneous or Elective: 1 Number of Living Children: 0 - Gestational Age Gestational Age by PERRY (wks/days): 32 Weeks and 5 Days Review of Systems - Review of Systems Constitutional: No problems Breast: No problems ENT: No problems Cardiovascular: No problems Respiratory: No problems Gastrointestinal: No problems Genitourinary: No problems Musculoskeletal: No problems Neurological: Seizure Skin: No problems Comment: pain and swelling in lower legs swelled over night. maggie curiel takes meds. hx of aniety, no meds. polyhydromios with preg. Vital Signs - Temperature Temperature: 98.6 F Temperature Source: Oral - Pulse Radial Pulse Rate: 93 Pulse Assessment Method: Automatic Cuff - Respirations Respiratory Rate: 18 Oxygen Delivery Method: Room Air O2 Sat by Pulse Oximetry: 96 - Blood Pressure Right Arm Blood Pressure: 131/75 Blood Pressure Mean: 93 Blood Pressure Source: Automatic Cuff Medical Screen Scoring (Pre) - Cervical Exam Dilation: Exam Deferred Effacement: Exam Deferred Membranes: Intact - Uterine Contractions Frequency: N/A Duration: N/A Intensity: N/A - Maternal Vital Signs Maternal Temperature: N/A Maternal Blood Pressure: N/A Signs of Preeclampsia: N/A Maternal Respirations: N/A - Pain Assessment Pain Location and Character: Lower, Calf, Ankle Pain Scale Used: Numeric (1 - 10) Pain Intensity: 1 Pain Description: Aching, Burning Pain Frequency: Intermittent Pain Behavior: Vocalization Pain Aggravating Factors: Activity, Sitting, Standing - Maternal Trauma Maternal Trauma: N/A - Assessment Heart Rate - NICHD Category: Category I (Normal) = 0 NST: Reactive Position: N/A Station: N/A - Total Score Total Score (Pre): 0 - Level of Risk Level of Risk: Low (0-5) Physician Notification (Pre) - Physician Notified Physician Notified Date: 03/04/18 Physician Notified Time: 16:00 Physician/Practitioner Notifed:: magalie Spoke With: magalie New Order Received: Yes (may return home with insrtuctions. sched. appt ) Disposition - Disposition OB Disposition: Discharge to home, Written follow up instructions reviewed Discharge Date: 03/04/18 Discharge Time: 16:25 I agree with the RN Medical Screening Exam: Yes Risk & Benefit of care provided described in d/c instruction: Yes Diagnosis: OTHER SPECIFIED COMPLICATIONS OF LABOR AND DELIVERY
== END 2018-03-04 16:25 | disposition home or self-care (01) ==
LOC: FBPOP 15:30
PROVIDERS: ATTEND Obstetrics & Gynecology Obstetrics
DX: O75.89 Other specified complications of labor and delivery (principal); Z3A.32 32 weeks gestation of pregnancy
CPT/HCPCS: 59025; G0463; 99213

== ENCOUNTER 2018-03-12 10:45 | Outpatient (CLI) | payer OTHER ==
[2018-03-12 11:08] VITALS: BP 116/62; PULSE 90; RESP 17; TEMP 97.1
[2018-03-12 11:32] LABS: Appearance,Urine Clear (Clear); Bacteria,Urine Rare /hpf; Bilirubin,Urine Negative (Negative); Blood,Urine Negative (Negative); Color,Urine Light Yellow; Glucose,Urine (UA) Negative (Negative); Ketones,Urine Negative (Negative); Leukocyte Esterase,Urine Moderate (Negative); Mucus,Urine Rare /hpf; Nitrite,Urine Negative (Negative); Protein,Urine Negative (Negative); RBC,Urine <1 /hpf (0-5); Specific Gravity,Urine 1.004 (1.001-1.035); Squamous Epithelial Cell,Urine 3 /hpf (0-4); Urobilinogen,Urine <2.0 mg/dL (<2.0); WBC,Urine 5 /hpf (0-5)
--- NOTE | 2018-03-23 08:30 | P.MSEPDOC ---
Presenting Problems - Arrival Data Date of Arrival on Unit: 03/12/18 Time of Arrival on Unit: 10:45 Mode of Transport: Wheelchair - Complaint OB-Reason for Admission/Chief Complaint: Pain Comment: pt here with c/o lower abd pain and lower back pain since 0600 this am that. started when she stood up out of bed, pain increases when she stands up, reports + movement, reports occasional. contractions, denies lof/vb, pt has a hx of seizures last one was in the beginning of. , denies other issues Medical History - Information : 2 Para: 0 Term: 0 : 0 Abortions: Spontaneous or Elective: 1 Number of Living Children: 0 - Gestational Age Gestational Age by PERRY (wks/days): 33 Weeks and 6 Days - History Complications: Smoker Review of Systems - Review of Systems Constitutional: No problems Breast: No problems ENT: No problems Cardiovascular: No problems Respiratory: No problems Gastrointestinal: No problems Genitourinary: No problems Musculoskeletal: No problems Neurological: No problems Skin: No problems Vital Signs - Temperature Temperature: 97.1 F Temperature Source: Temporal Artery Scan - Pulse Right Brachial Pulse Rate: 90 Pulse Assessment Method: Automatic Cuff - Respirations Respiratory Rate: 17 Oxygen Delivery Method: Room Air O2 Sat by Pulse Oximetry: 98 - Blood Pressure Right Arm Blood Pressure: 116/62 Blood Pressure Mean: 80 Blood Pressure Source: Automatic Cuff Medical Screen Scoring (Pre) - Cervical Exam Dilation: 0 cm = 0 Effacement: Exam Deferred Membranes: Intact - Uterine Contractions Frequency: N/A Duration: N/A Intensity: N/A - Maternal Vital Signs Maternal Temperature: N/A Maternal Blood Pressure: N/A Signs of Preeclampsia: N/A Maternal Respirations: N/A - Pain Assessment Pain Location and Character: Lower, Back, Abdomen Pain Scale Used: Numeric (1 - 10) Pain Intensity: 6 Pain Description: *Acute, Aching Pain Radiation Location: none Pain Frequency: Intermittent Pain Duration: 5 Pain Duration Units: Hours Pain Behavior: Decreased Activity, Facial Grimacing, Moving Slowly Pain Aggravating Factors: Activity, Position, Standing - Maternal Trauma Maternal Trauma: N/A - Assessment Baseline FHR: 145 Heart Rate - NICHD Category: Category I (Normal) = 0 NST: Reactive Position: N/A Station: N/A - Total Score Total Score (Pre): 0 - Level of Risk Level of Risk: Low (0-5) Physician Notification (Pre) - Physician Notified Physician Notified Date: 03/12/18 Physician Notified Time: 12:15 Physician/Practitioner Notifed:: Dr Garcia Spoke With: Dr Garcia New Order Received: Yes (dc home) - Notification Comment Comment: pt ok to dc home, pt to be on pelvic rest until appt on 03/16 and educated on using a maternity belt for abd support, pt verbalizes understanding Disposition - Disposition OB Disposition: Discharge to home, Written follow up instructions reviewed Discharge Date: 03/12/18 Discharge Time: 12:20 I agree with the RN Medical Screening Exam: Yes Risk & Benefit of care provided described in d/c instruction: Yes Diagnosis: RELATED CONDITIONS, UNSPECIFIED, THIRD TRIMESTER
== END 2018-03-12 12:20 | disposition home or self-care (01) ==
LOC: FBPOP 10:45
PROVIDERS: ATTEND Obstetrics & Gynecology
DX: O26.93 Pregnancy related conditions, unspecified, third trimester (principal); O99.333 Smoking (tobacco) complicating pregnancy, third trimester; Z3A.33 33 weeks gestation of pregnancy
CPT/HCPCS: 59025; 81001; G0463; 99213

== ENCOUNTER → 2018-04-02 | Outpatient (CLI) | payer OTHER ==
[2018-04-02 21:37] LABS: Appearance,Urine Cloudy (Clear); Bilirubin,Urine Negative (Negative); Blood,Urine Negative (Negative); Calcium Oxalate Crystals,Urine Few /hpf; Color,Urine Yellow; Glucose,Urine (UA) Negative (Negative); Ketones,Urine Negative (Negative); Leukocyte Esterase,Urine Large (Negative); Mucus,Urine Rare /hpf; Nitrite,Urine Negative (Negative); PH, Urine 6.5 (5.0-8.0); Protein,Urine Trace (Negative); RBC,Urine 1 /hpf (0-5); Specific Gravity,Urine 1.021 (1.001-1.035); Squamous Epithelial Cell,Urine 22 /hpf (0-4)
[2018-04-03 00:57] VITALS: BP 124/71; PULSE 110; RESP 18; TEMP 99.1
--- NOTE | 2018-04-09 13:13 | P.MSEPDOC ---
Presenting Problems - Arrival Data Date of Arrival on Unit: 04/02/18 Time of Arrival on Unit: 20:25 Mode of Transport: Wheelchair - Complaint OB-Reason for Admission/Chief Complaint: Headache, Dizziness Comment: pt presents to triage for complaints of headache and swelling and numbness in. arms, hands , feet , legs. complains of vaginal pain constant aching with any position. has been. going on all day. states this headache is not nearly as bad as migraine pain Medical History - Information : 2 Para: 0 Term: 0 : 0 Abortions: Spontaneous or Elective: 1 Number of Living Children: 0 - Gestational Age Gestational Age by PERRY (wks/days): 36 Weeks and 6 Days Review of Systems - Review of Systems Constitutional: No problems Breast: No problems ENT: No problems Cardiovascular: No problems Respiratory: No problems Gastrointestinal: No problems Genitourinary: No problems Musculoskeletal: No problems Neurological: No problems Skin: No problems Vital Signs - Temperature Temperature: 99.1 F Temperature Source: Oral - Pulse Right Pulse Rate: 110 Pulse Assessment Method: Automatic Cuff - Respirations Respiratory Rate: 18 Oxygen Delivery Method: Room Air O2 Sat by Pulse Oximetry: 98 - Blood Pressure Right Arm Blood Pressure: 124/71 Blood Pressure Mean: 88 Blood Pressure Source: Automatic Cuff Medical Screen Scoring (Pre) - Cervical Exam Dilation: Exam Deferred Effacement: Exam Deferred - Uterine Contractions Frequency: N/A - Maternal Vital Signs Maternal Temperature: N/A Maternal Blood Pressure: N/A Signs of Preeclampsia: Headache = 1 Maternal Respirations: N/A - Pain Assessment Pain Location and Character: Head Pain Scale Used: Numeric (1 - 10) Pain Intensity: 6 Pain Management Goal: 7 Pain Description: Aching Pain Radiation Location: none Pain Frequency: Constant Pain Duration: 4 Pain Duration Units: Hours Pain Behavior: None Exhibited Effects of Pain: none - Maternal Trauma Maternal Trauma: N/A - Assessment Baseline FHR: 155 Heart Rate - NICHD Category: Category I (Normal) = 0 NST: Reactive Position: N/A Station: N/A - Total Score Total Score (Pre): 1 - Level of Risk Level of Risk: Low (0-5) Physician Notification (Pre) - Physician Notified Physician Notified Date: 04/02/18 Physician Notified Time: 21:00 Physician/Practitioner Notifed:: dr Lensmeyer New Order Received: Yes - Notification Comment Comment: obtain ua. Results reported to Dr Oliva 0. also reported pt now remembers her "dog headbutted her today adn she has a goose egg where the pain is". discharge order received. Disposition - Disposition OB Disposition: Discharge to home Discharge Date: 04/02/18 Discharge Time: 22:15 I agree with the RN Medical Screening Exam: Yes Risk & Benefit of care provided described in d/c instruction: Yes Diagnosis: RELATED CONDITIONS, UNSPECIFIED, THIRD TRIMESTER
== END | disposition home or self-care (01) ==
LOC: RADUSWWP 20:25 → FBPOP 20:25
PROVIDERS: ATTEND Obstetrics & Gynecology
DX: O26.93 Pregnancy related conditions, unspecified, third trimester (principal); Z3A.36 36 weeks gestation of pregnancy
CPT/HCPCS: 59025; 81001; 87086; G0463; 99213

== ENCOUNTER 2018-04-09 09:59 | Inpatient (IN) | payer OTHER ==
[2018-04-09] MEDS ORDERED: LACTATED RINGERS 1,000 ML IV ONE (11:09)
[2018-04-09] MEDS ORDERED: CITRIC ACID-SODIUM CITRATE 15 ML CUP PO ONE (11:09)
[2018-04-09] MEDS ORDERED: CLINDAMYCIN 900 MG in DEXTROSE 5% IN WATER 50 ML IVPB STA ×2 (11:22)
[2018-04-09] MEDS: LACTATED RINGERS 1,000 ML IV SCH ×2 (11:34→19:04)
[2018-04-09 11:48] LABS: Basophils % (A) 0 %; Eosinophils # (A) 0.2 k/uL (0-0.7); Eosinophils % (A) 2 %; HCT 37.7 % (34.0-46.0); HGB 12.8 gm/dL (11.4-16.0); Lymphocytes # (A) 1.9 k/uL (1.0-4.8); Lymphocytes % (A) 20 %; MCH 31.8 pg (25.0-35.0); MCHC 34.1 g/dL (31.0-37.0); MCV 93.3 fL (80.0-100.0); Mean Platelet Volume 8.3; Monocytes # (A) 0.5 k/uL (0-1.0); Monocytes % (A) 5 %; Neutrophils % (A) 71 %; Platelet Count 225 k/uL (150-450); RBC 4.04 m/uL (3.80-5.40); RDW 13.2 % (11.5-15.5); WBC 9.8 k/uL (3.8-10.6)
[2018-04-09] MEDS ORDERED: MORPHINE SULFATE (PF) 0.3 MG/0.3 ML SYR ONE (12:04)
[2018-04-09] MEDS ORDERED: diphenhydrAMINE 50 MG/ML 1 ML VIAL ONE (12:04)
[2018-04-09] MEDS ORDERED: PHENYLEPHRINE-0.9% NACL SYG 1 MG/10 ML SYRINGE ONE (12:04)
[2018-04-09] MEDS ORDERED: NALBUPHINE 10 MG/ML VIAL (10ML MDV) ONE (12:04)
[2018-04-09] MEDS ORDERED: DEXAMETHASONE SOD PHOS (MDV) 100 MG/10 ML VIAL ONE (12:04)
[2018-04-09] MEDS ORDERED: ONDANSETRON 4 MG/2 ML VIAL ONE (12:04)
[2018-04-09] MEDS ORDERED: METOCLOPRAMIDE 5 MG/ML 2 ML VIAL ONE (12:04)
[2018-04-09] MEDS ORDERED: ONDANSETRON 4 MG/2 ML VIAL IVP PRN (13:53)
[2018-04-09] MEDS ORDERED: NALOXONE 0.4 MG/ML 1 ML VIAL IV PRN (13:53)
[2018-04-09] MEDS ORDERED: diphenhydrAMINE 50 MG/ML 1 ML VIAL IVP PRN ×2 (13:53)
[2018-04-09] MEDS ORDERED: ACETAMINOPHEN TAB 325 MG TAB PO PRN (13:53)
[2018-04-09] MEDS ORDERED: diphenhydrAMINE 50 MG CAP PO PRN (13:53)
[2018-04-09] MEDS ORDERED: METOCLOPRAMIDE 5 MG/ML 2 ML VIAL IVP PRN (13:53)
[2018-04-09] MEDS ORDERED: ZOLPIDEM 5 MG TAB PO PRN (13:53)
[2018-04-09] MEDS ORDERED: diphenhydrAMINE 25 MG CAP PO PRN (13:53)
--- NOTE | 2018-04-09 13:53 | P.OP ---
Date of Procedure: 04/09/18 Preoperative Diagnosis: IUP at 37 and 5, polyhydramnios, seizure disorder, smoker Postoperative Diagnosis: Same Procedure(s) Performed: Primary low transverse section Anesthesia: spinal Surgeon: Penny Walker Meal Temperer #1: Ozzie Oliva Estimated Blood Loss (ml): 600 IV fluids (ml): 1,200 Urine output (ml): 200 Pathology: other (Placenta) Condition: stable Disposition: observation Indications for Procedure: Polyhydramnios, unstable lie, maternal discomfort Operative Findings: Normal uterus tubes and ovaries were appreciated Description of Procedure: The patient was prepped and draped in the usual fashion after spinal anesthesia was administered. A Pfannenstiel incision was made and extended of the abdominal cavity without difficulty. The bladder peritoneum was elevated and incised and reflected distally. an Jose Luis abdominal retractor was placed into the abdomen A 2 cm incision was made in the transverse plane of the lower uterine segment to enter the uterus at which time clear fluid was noted. The incision was extended in both directions using the bandage scissors. The head was encountered within the field and delivered up and through the incision where the nose and mouth were thoroughly suctioned. Remainder of the infant was delivered onto the surgical field where the cord was doubly clamped, cut, and the infant was passed for resuscitative measures with weight and Apgars as noted above. The placenta was delivered manually, intact, and was grossly normal with a grossly normal three-vessel cord. The uterus was exteriorized and the interior cavity of the uterus swept of any remaining placental and membranous fragments with a laparotomy sponge. The margins of the incision were grasped with allis clamps and the incision closed in 2 layers. First layer was a running locking layer of 0 vicryl from margin to margin followed by a second layer of imbricating 0 vicryl from margin to margin. Any small points of bleeding were then made hemostatic with the Bovie. Once hemostasis was achieved, the posterior cul-de-sac was suctioned with a guard and the uterine and ovarian findings are as noted above. The uterus was replaced within the abdominal cavity and the gutters swept of any remaining blood fluid or clot. The incision was again reexamined and hemostasis was noted to be excellent. The Jose Luis retractor was then removed, Any small point of bleeding were made hemostatic with the Bovie. Once hemostasis was achieved the parietal peritoneum was loosely reapproximated. The layer of muscles were examined and made hemostatic with the Bovie. Attention was then turned to the fascia which was closed with 2 running stitches of 0 Vicryl proceeding from the lateral margins to the midpoint. The subcutaneous tissues were irrigated, made hemostatic with the Bovie, and reapproximated with a running stitch of 30 plain catgut. The skin was reapproximated with 4-0 vicryl. Estimated blood loss for the case was approximately 600 mL. All sponge instrument and needle counts are correct. There were no complications. The patient tolerated the procedure well and proceeded to the recovery room in stable condition. Both mother and are resting comfortably in recovery.
[2018-04-09] MEDS ORDERED: LACTATED RINGERS 1,000 ML IV SCH (14:00)
[2018-04-09] MEDS ORDERED: OXYTOCIN 20 UNITS/1000 ML NS 1,000 ML IV SCH (14:00)
[2018-04-09 14:40] VITALS: BMI 54.7
[2018-04-09] MEDS ORDERED: HYDROcodone/APAP 5-325MG 1 EACH TAB PO PRN ×2 (18:43)
[2018-04-09] MEDS ORDERED: ACETAMINOPHEN IV (For NPO) 1,000 MG in EMPTY BAG 1 BAG IVPB ONE (18:45)
[2018-04-09 21:16] VITALS: RESP 16
[2018-04-09] MEDS: SENNOSIDES-DOCUSATE SODIUM 1 EACH TAB PO SCH (21:34)
[2018-04-10] MEDS: LACTATED RINGERS 1,000 ML IV SCH (05:24)
[2018-04-10] MEDS: SENNOSIDES-DOCUSATE SODIUM 1 EACH TAB PO SCH (07:42)
[2018-04-10 07:57] VITALS: BP 116/73; PULSE 92; TEMP 98.1
--- NOTE | 2018-04-10 08:07 | P.PN ---
Progress Note - Text Date: 04/10Time:709am Patient is status post . Patient seen this morning with VAS score of 2.c/o pruritus, no c/o nausea/vomiting, comfortable and doing well.
[2018-04-10 08:18] LABS: Basophils % (A) 0 %; Eosinophils # (A) 0.1 k/uL (0-0.7); Eosinophils % (A) 1 %; HCT 33.1 % (34.0-46.0); HGB 11.1 gm/dL (11.4-16.0); Lymphocytes # (A) 2.3 k/uL (1.0-4.8); Lymphocytes % (A) 20 %; MCH 31.3 pg (25.0-35.0); MCHC 33.6 g/dL (31.0-37.0); MCV 93.2 fL (80.0-100.0); Mean Platelet Volume 8.3; Monocytes # (A) 0.5 k/uL (0-1.0); Monocytes % (A) 5 %; Neutrophils # (A) 8.8 k/uL (1.3-7.7); Neutrophils % (A) 74 %; Platelet Count 198 k/uL (150-450); RBC 3.55 m/uL (3.80-5.40); WBC 11.9 k/uL (3.8-10.6)
--- NOTE | 2018-04-10 08:22 | P.DS ---
Providers Date of admission: 04/09/18 09:59 Expected date of discharge: 04/10/18 Attending physician: Penny Walker Primary care physician: Stated None - Discharge Diagnosis(es) (1) Term Current Visit: Yes Status: Acute (2) Polyhydramnios Current Visit: Yes Status: Acute (3) Smoker Current Visit: Yes Status: Acute Hospital Course: This is a 37-year-old 2 para 0010 at 37-5/7 weeks that presented for primary low transverse section secondary to unstable lie, breech presentation, polyhydramnios. Patient had received care with Dr. Phoenix until approximately 30 weeks of gestation and then transferred over to myself. Patient had seen maternal medicine given her advanced maternal age ultrasound was done with them and is on her record. Patient declined any genetic screening at that appointment. Patient did have a echo done per recommendations of the anatomic ultrasound. Patient underwent primary low transverse section 924 without difficulty. For further details on the please see the operative report. Of note the was noted to have a diaphragmatic hernia on delivery was intubated and transferred to [facility]. Patient is doing well postoperatively. She is ambulating and voiding without difficulty. She denies nausea or vomiting with a regular diet, she is pumping and wishes discharge home given her infant is in the NICU. Patient Condition at Discharge: Good Plan - Discharge Summary Discharge Rx Participant: No New Discharge Prescriptions: No Action Hnb-Gsiq-Gapyj Acid [-U Capsule (formulary)] 1 cap PO DAILY levETIRAcetam [Keppra] 750 mg PO Q12HR Folic Acid 1 mg PO DAILY Albuterol Inhaler [Ventolin Hfa Inhaler] 1 - 2 puff INHALATION RT-Q6H PRN PRN Reason: Shortness Of Breath Discharge Medication List Gzz-Cmgu-Zzkjl Acid [-U Capsule (formulary)] 1 cap PO DAILY [History] Albuterol Inhaler [Ventolin Hfa Inhaler] 1 - 2 puff INHALATION RT-Q6H PRN [History] Folic Acid 1 mg PO DAILY 04/04/18 [History] levETIRAcetam [Keppra] 750 mg PO Q12HR 04/04/18 [History] Follow up Appointment(s)/Referral(s): Penny Walker DO [Doctor of Osteopathic Medicine] - 1 Week Patient Instructions/Handouts: (DC), (GEN) Activity/Diet/Wound Care/Special Instructions: No tub baths or intercourse until 6 weeks Discharge Disposition: HOME SELF-CARE
--- NOTE | 2018-04-10 08:23 | P.HPOB ---
History of Present Illness H&P Date: 04/09/18 Chief Complaint: IUP at 37 and 5, polyhydramnios This is a 2 para 1 37-5/7 weeks that presented for primary increasing. Patient had received care with Dr. Phoenix until approximately 32 weeks of and then transferred to [facility] [employer] [employer]. She did see maternal medicine at the beginning part of with Dr. Phoenix for advanced maternal age ultrasound was performed at [facility] in [place], they did recommend a echo which was done and normal in nature. In addition she was counseled on genetic screening and declined Patient received routine care with myself increasing fluid was noted from 32-36 weeks with reassuring testing and reactive NSTs. Given the patient's unstable lie the decision was made for primary . On blood work patient had a blood type of A+, rubella immune, RPR nonreactive, hepatitis B surface antigen negative, HIV negative she did pass her Glucola screen on 10/17 with a level of 54 and a repeat on 02/12 level of 100. Group B strep was noted to be negative on 97 Past Medical History Past Medical History: Asthma, Neurologic Disorder, Seizure Disorder Additional Past Medical History / Comment(s): migraines. LAST SEIZURE-07/2017 History of Any Multi-Drug Resistant Organisms: None Reported Past Surgical History: Appendectomy, Cholecystectomy, Orthopedic Surgery, Tonsillectomy Additional Past Surgical History / Comment(s): dental surgery. RT ANKLE TENDON SX Past Anesthesia/Blood Transfusion Reactions: Previous Problems w/ Anesthesia Additional Past Anesthesia/Blood Transfusion Reaction / Comment(s): HAD BREATHING PROBLEMS DURING APPENDECTOMY Smoking Status: Current every day smoker - Past Family History Father Family Medical History: Cancer Mother Family Medical History: Cancer, Coronary Artery Disease (CAD), Diabetes Mellitus , Hypertension Additional Family Medical History / Comment(s): lupus Medications and Allergies Home Medications Medication Instructions Recorded Confirmed Type Mwt-Kqlx-Fdioq Acid 1 cap PO DAILY 10/03/17 04/09/18 History [-U Capsule (formulary)] Albuterol Inhaler [Ventolin Hfa 1 - 2 puff INHALATION RT-Q6H PRN 04/04/18 History Inhaler] Folic Acid 1 mg PO DAILY 04/04/18 04/09/18 History levETIRAcetam [Keppra] 750 mg PO Q12HR 04/04/18 04/09/18 History Allergies Allergy/AdvReac Type Severity Reaction Status Date / Time adhesive tape Allergy MOREIRA SKINS Verified 04/04/18 14:52 amoxicillin [Amoxicillin] Allergy Anaphylaxis Verified 04/04/18 14:51 aspirin Allergy Anaphylaxis Verified 04/04/18 14:51 Penicillins Allergy Anaphylaxis Verified 04/04/18 14:51 Exam Osteopathic Statement: *. No significant issues noted on an osteopathic structural exam other than those noted in the History and Physical/Consult. - OBG Physical Exam Abdomen: Morbid obesity Uterus: enlarged () Results Result Diagrams: 04/09/18 10:20 Assessment and Plan (1) Term Current Visit: Yes Status: Acute Code(s): Z34.80 - ENCOUNTER FOR SUPRVSN OF NORMAL , UNSP TRIMESTER SNOMED Code(s): 79982678 (2) Polyhydramnios Current Visit: Yes Status: Acute Code(s): O40.9XX0 - POLYHYDRAMNIOS, UNSP TRIMESTER, NOT APPLICABLE OR UNSP SNOMED Code(s): 11079632 (3) Smoker Current Visit: Yes Status: Acute Code(s): F17.200 - NICOTINE DEPENDENCE, UNSPECIFIED, UNCOMPLICATED SNOMED Code(s): 00935419 Plan: Given unstable lie of fetus and polyhydramnios that is increasing plan a primary . Patient is noted to be extremely uncomfortable given the increased fluid and non-labor contractions. Surgery was reviewed with patient in detail risks were reviewed and all questions were answered. Patient stated understanding and we will proceed.
[2018-04-10] MEDS ORDERED: PRENATAL VIT-IRON-FOLIC ACID 1 EACH CAP PO SCH (09:00)
== END 2018-04-10 11:00 | disposition home or self-care (01) | DRG 765 ==
LOC: 4FBP 09:59
PROVIDERS: ADMIT Obstetrics & Gynecology Obstetrics; ATTEND Obstetrics & Gynecology Obstetrics
PROC: 10D00Z1 Extraction of Products of Conception, Low, Open Approach (ICD-10-PCS; principal; 2018-04-09 12:00)
DX: O32.0XX0 Maternal care for unstable lie, not applicable or unspecified (principal); Z68.43 Body mass index [BMI] 50.0-59.9, adult; O99.354 Diseases of the nervous system complicating childbirth; Z37.0 Single live birth; O99.214 Obesity complicating childbirth; O32.1XX0 Maternal care for breech presentation, not applicable or unspecified; O40.3XX0 Polyhydramnios, third trimester, not applicable or unspecified; E66.01 Morbid (severe) obesity due to excess calories; O99.334 Smoking (tobacco) complicating childbirth; F17.210 Nicotine dependence, cigarettes, uncomplicated; O99.72 Diseases of the skin and subcutaneous tissue complicating childbirth; O99.52 Diseases of the respiratory system complicating childbirth; J45.909 Unspecified asthma, uncomplicated; G40.909 Epilepsy, unspecified, not intractable, without status epilepticus; Z3A.37 37 weeks gestation of pregnancy; Z79.899 Other long term (current) drug therapy; Z90.49 Acquired absence of other specified parts of digestive tract; Z82.49 Family history of ischemic heart disease and other diseases of the circulatory system; Z83.3 Family history of diabetes mellitus; Z80.9 Family history of malignant neoplasm, unspecified; Z84.89 Family history of other specified conditions; Z88.6 Allergy status to analgesic agent; Z88.0 Allergy status to penicillin; Z91.048 Other nonmedicinal substance allergy status
CPT/HCPCS: 85025; 86850; 86900; 86901; 88307

== ENCOUNTER 2018-04-19 22:01 | Emergency (ER) | payer OTHER ==
--- NOTE | 2018-04-19 22:24 | ED ---
General Adult HPI - General Chief complaint: Abdominal Pain Stated complaint: post infection Source: patient Mode of arrival: ambulatory Limitations: no limitations - History of Present Illness Initial comments: Dictation was produced using [employer] dictation software. please excuse any grammatical, word or spelling errors. Chief Complaint: 37-year-old female past medical history of asthma and seizure disorder presents with painful wound. History of Present Illness: She was a 37-year-old female with past medical history of seizures presents with painful surgical site. She had a C- section performed on the of last month. Today she was seen by her NURSING UNIT COORDINATOR who told her to come to the emergency department for the wound to be evaluated. Patient did have a cough care with breech positioning and which she describes as with a lot of amniotic fluid. Patient denies any constitutional symptoms. She does state that the surgical site is painful at the superior and inferior portion of the wound. The ROS documented in this emergency department record has been reviewed and confirmed by me. Those systems with pertinent positive or negative responses have been documented in the HPI. All other systems are other negative and/or noncontributory. - Related Data Home Medications Medication Instructions Recorded Confirmed Ctd-Oojr-Dnfci Acid 1 cap PO DAILY 10/03/17 04/19/18 [-U Capsule (formulary)] Albuterol Inhaler [Ventolin Hfa 1 - 2 puff INHALATION RT-Q6H PRN 04/04/18 Inhaler] Folic Acid 1 mg PO BID 04/04/18 04/19/18 HYDROcodone/APAP 5-325MG [Brooker 1 tab PO Q6HR PRN 04/19/18 04/19/18 5-325] Ibuprofen [Motrin] 600 mg PO Q8HR PRN 04/19/18 04/19/18 levETIRAcetam [Keppra] 500 mg PO Q12HR 04/19/18 04/19/18 Allergies Allergy/AdvReac Type Severity Reaction Status Date / Time adhesive tape Allergy MOREIRA SKINS Verified 04/19/18 22:16 amoxicillin [Amoxicillin] Allergy Anaphylaxis Verified 04/19/18 22:16 aspirin Allergy Anaphylaxis Verified 04/19/18 22:16 Penicillins Allergy Anaphylaxis Verified 04/19/18 22:16 Review of Systems ROS Statement: Those systems with pertinent positive or pertinent negative responses have been documented in the HPI. ROS Other: All systems not noted in ROS Statement are negative. Past Medical History Past Medical History: Asthma, Neurologic Disorder, Seizure Disorder Additional Past Medical History / Comment(s): migraines. LAST SEIZURE-07/2017 History of Any Multi-Drug Resistant Organisms: None Reported Past Surgical History: Appendectomy, Section, Cholecystectomy, Orthopedic Surgery, Tonsillectomy Additional Past Surgical History / Comment(s): dental surgery. RT ANKLE TENDON SX Past Anesthesia/Blood Transfusion Reactions: Previous Problems w/ Anesthesia Additional Past Anesthesia/Blood Transfusion Reaction / Comment(s): HAD BREATHING PROBLEMS DURING APPENDECTOMY Past Psychological History: Anxiety, Depression Smoking Status: Current every day smoker Past Alcohol Use History: None Reported Past Drug Use History: None Reported - Past Family History Father Family Medical History: Cancer Mother Family Medical History: Cancer, Coronary Artery Disease (CAD), Diabetes Mellitus , Hypertension Additional Family Medical History / Comment(s): lupus General Exam - General Exam Comments Initial Comments: PHYSICAL EXAM: General Impression: Alert and oriented x3, not in acute distress HEENT: Normocephalic atraumatic, extra-ocular movements intact, pupils equal and reactive to light bilaterally, mucous membranes moist. Cardiovascular: Heart regular rate and rhythm, S1&S2 audible, no murmurs, rubs or gallops Chest: Lungs clear to auscultation bilaterally, no rhonchi, no wheeze, no rales Abdomen: Bowel sounds present, abdomen soft, non-tender, non-distended, no organomegaly Musculoskeletal: Pulses present and equal in all extremities, no peripheral edema Motor: Power 5/5 bilaterally, no focal deficits noted Neurological: CN II-XII grossly intact, no focal motor or sensory deficits noted Skin: Surgical site is erythematous with some purulent drainage. There is a indurated mass at the superior portion approximately 3 cm right of midline. It is also diffuse tenderness along the inferior portion of the wound. Psych: Normal affect and mood Limitations: no limitations Course Vital Signs 04/19/18 22:03 Temperature 98.4 F Pulse Rate 105 H Respiratory 16 Rate Blood Pressure 112/74 O2 Sat by Pulse 98 Oximetry Medical Decision Making - Medical Decision Making ED course: 37-year-old female presents with painful surgical site status post C- section approximately 11 days ago. Vital signs upon arrival shows heart rate of 105. Patient is normotensive. No clinical suspicion of eclampsia. Presentation suspicious for infected surgical site. Point of care bedside ultrasound was performed. There is findings of fluid collections that are likely to be abscesses given clinical presentation. Discussed patient case in detail with NURSING UNIT COORDINATOR Dr. Walker. NURSING UNIT COORDINATOR said she saw the patient at approximately 11 AM today. She was started on Levaquin. She believes that there is a small area of induration which she believes is a seroma. Have scheduled follow-up. NURSING UNIT COORDINATOR otherwise recommends that patient be discharged home with close outpatient follow-up.Laboratory evaluation obtained. CBC unremarkable. Basic metabolic panel is negative. Patient to be discharge with close outpatient follow-up. She is told to return to the emergency department if she expressing worsening symptoms especially constitutional symptoms or worsening surgical site pain. It was the surgeons wish to allow proximal 24 hours of antibiotics until any consideration of intervention be pursued. Patient was called in a prescription for Levaquin earlier today however she was not able to fill it. We 'll give patient one dose of Levaquin here. Told to pickler helper her prescription tomorrow. Patient is understandable and agreeable to discharge. They have immediate access to the surgeon and transportation should anything change. - Lab Data Result diagrams: 04/19/18 22:47 04/19/18 22:47 Lab Results 04/19/18 04/19/18 Range/Units 22:47 22:47 WBC 9.4 (3.8-10.6) k/uL RBC 4.17 (3.80-5.40) m/uL Hgb 12.8 (11.4-16.0) gm/dL Hct 38.9 (34.0-46.0) % MCV 93.4 (80.0-100.0) fL MCH 30.7 (25.0-35.0) pg MCHC 32.8 (31.0-37.0) g/dL RDW 12.7 (11.5-15.5) % Plt Count 301 (150-450) k/uL Neutrophils % 58 % Lymphocytes % 28 % Monocytes % 7 % Eosinophils % 4 % Basophils % 0 % Neutrophils # 5.5 (1.3-7.7) k/uL Lymphocytes # 2.7 (1.0-4.8) k/uL Monocytes # 0.7 (0-1.0) k/uL Eosinophils # 0.4 (0-0.7) k/uL Basophils # 0.0 (0-0.2) k/uL Sodium 140 (137-145) mmol/L Potassium 3.9 (3.5-5.1) mmol/L Chloride 108 H (98-107) mmol/L Carbon Dioxide 26 (22-30) mmol/L Anion Gap 6 mmol/L BUN 17 (7-17) mg/dL Creatinine 0.57 (0.52-1.04) mg/dL Est GFR (CKD-EPI)AfAm >90 (>60 ml/min/1.73 sqM) Est GFR (CKD-EPI)NonAf >90 (>60 ml/min/1.73 sqM) Glucose 90 (74-99) mg/dL Calcium 8.8 (8.4-10.2) mg/dL Disposition Clinical Impression: Pain at surgical site Disposition: HOME SELF-CARE Condition: Good Instructions: Surgical Site Infections (ED) Is patient prescribed a controlled substance at d/c from ED?: No Referrals: Lupe Wick MD [Primary Care Provider] - 1-2 days Penny Walker DO [Doctor of Osteopathic Medicine] - 1-2 days Time of Disposition: 23:34
[2018-04-19 23:08] LABS: Basophils % (A) 0 %; Eosinophils # (A) 0.4 k/uL (0-0.7); Eosinophils % (A) 4 %; HCT 38.9 % (34.0-46.0); HGB 12.8 gm/dL (11.4-16.0); Lymphocytes # (A) 2.7 k/uL (1.0-4.8); Lymphocytes % (A) 28 %; MCH 30.7 pg (25.0-35.0); MCHC 32.8 g/dL (31.0-37.0); MCV 93.4 fL (80.0-100.0); Mean Platelet Volume 7.4; Monocytes # (A) 0.7 k/uL (0-1.0); Monocytes % (A) 7 %; Neutrophils # (A) 5.5 k/uL (1.3-7.7); Neutrophils % (A) 58 %; Platelet Count 301 k/uL (150-450); RBC 4.17 m/uL (3.80-5.40); RDW 12.7 % (11.5-15.5); WBC 9.4 k/uL (3.8-10.6)
[2018-04-19 23:20] LABS: Blood Urea Nitrogen 17 mg/dL (7-17); Calcium 8.8 mg/dL (8.4-10.2); Carbon Dioxide 26 mmol/L (22-30); Glucose 90 mg/dL (74-99)
[2018-04-19 23:21] LABS: Anion Gap 6 mmol/L; Chloride 108 mmol/L (98-107); Potassium 3.9 mmol/L (3.5-5.1); Sodium 140 mmol/L (137-145)
[2018-04-19] MEDS ORDERED: LEVOFLOXACIN 750 MG TAB PO STA (23:32)
[2018-04-20 00:04] VITALS: BP 121/63; PULSE 86; RESP 18; TEMP 98.6
== END 2018-04-19 23:55 | disposition home or self-care (01) ==
LOC: EC 22:01
DX: O99.89 Other specified diseases and conditions complicating pregnancy, childbirth and the puerperium (principal); R10.9 Unspecified abdominal pain; R05 Cough; O99.53 Diseases of the respiratory system complicating the puerperium; G89.18 Other acute postprocedural pain; J45.909 Unspecified asthma, uncomplicated; O99.355 Diseases of the nervous system complicating the puerperium; G40.909 Epilepsy, unspecified, not intractable, without status epilepticus; O99.335 Smoking (tobacco) complicating the puerperium; F17.200 Nicotine dependence, unspecified, uncomplicated; Z98.890 Other specified postprocedural states; Z90.49 Acquired absence of other specified parts of digestive tract; Z79.899 Other long term (current) drug therapy; Z91.048 Other nonmedicinal substance allergy status; Z88.0 Allergy status to penicillin; Z88.6 Allergy status to analgesic agent
CPT/HCPCS: 36415; 80048; 85025; 99284

== ENCOUNTER 2018-04-22 19:46 | Emergency (ER) | payer OTHER ==
[2018-04-22 20:00] VITALS: BP 131/80; PULSE 85; RESP 18; TEMP 98
--- NOTE | 2018-04-22 20:23 | ED ---
General Adult HPI - General Chief complaint: Skin/Abscess/Foreign Body Stated complaint: open incision Time Seen by Provider: 04/22/18 20:02 Source: patient, RN notes reviewed Mode of arrival: ambulatory Limitations: no limitations - History of Present Illness Initial comments: 37-year-old female since to the emergency department for a chief complaint of dehiscence of section wound times one day. Patient states her fianc noticed this today. Patient states she is currently on Levaquin for infection of the wound. She was seen here in the emergency department 3 days ago and had blood work done at that time. Dr. Olguin had recommended Levaquin which patient is currently taking for 14 days. She has had 3 days of Levaquin so far. Patient denies any increased pain of the wound. Patient denies any increased drainage or erythema. She denies any fevers or chills at home. She denies any other symptoms at his lethargy. Patient has no other complaints at this time including shortness of breath, chest pain, abdominal pain, nausea or vomiting, headache, or visual changes. - Related Data Home Medications Medication Instructions Recorded Confirmed Mjp-Jhel-Rnxbo Acid 1 cap PO DAILY 10/03/17 04/19/18 [-U Capsule (formulary)] Albuterol Inhaler [Ventolin Hfa 1 - 2 puff INHALATION RT-Q6H PRN 04/04/18 Inhaler] Folic Acid 1 mg PO BID 04/04/18 04/19/18 HYDROcodone/APAP 5-325MG [[place] 1 tab PO Q6HR PRN 04/19/18 04/19/18 5-325] Ibuprofen [Motrin] 600 mg PO Q8HR PRN 04/19/18 04/19/18 levETIRAcetam [Keppra] 500 mg PO Q12HR 04/19/18 04/19/18 Allergies Allergy/AdvReac Type Severity Reaction Status Date / Time adhesive tape Allergy MOREIRA SKINS Verified 04/22/18 19:59 amoxicillin [Amoxicillin] Allergy Anaphylaxis Verified 04/22/18 19:59 aspirin Allergy Anaphylaxis Verified 04/22/18 19:59 Penicillins Allergy Anaphylaxis Verified 04/22/18 19:59 Review of Systems ROS Statement: Those systems with pertinent positive or pertinent negative responses have been documented in the HPI. ROS Other: All systems not noted in ROS Statement are negative. Past Medical History Past Medical History: Asthma, Neurologic Disorder, Seizure Disorder Additional Past Medical History / Comment(s): migraines. LAST SEIZURE-07/2017 History of Any Multi-Drug Resistant Organisms: None Reported Past Surgical History: Appendectomy, Section, Cholecystectomy, Orthopedic Surgery, Tonsillectomy Additional Past Surgical History / Comment(s): dental surgery. RT ANKLE TENDON SX Past Anesthesia/Blood Transfusion Reactions: Previous Problems w/ Anesthesia Additional Past Anesthesia/Blood Transfusion Reaction / Comment(s): HAD BREATHING PROBLEMS DURING APPENDECTOMY Past Psychological History: Anxiety, Depression Smoking Status: Current every day smoker Past Alcohol Use History: None Reported Past Drug Use History: None Reported - Past Family History Father Family Medical History: Cancer Mother Family Medical History: Cancer, Coronary Artery Disease (CAD), Diabetes Mellitus , Hypertension Additional Family Medical History / Comment(s): lupus General Exam Limitations: no limitations General appearance: alert, in no apparent distress Head exam: Present: atraumatic, normocephalic, normal inspection Eye exam: Present: normal appearance, PERRL, EOMI. Absent: scleral icterus, conjunctival injection, periorbital swelling ENT exam: Present: normal exam, mucous membranes moist Neck exam: Present: normal inspection. Absent: tenderness, meningismus, lymphadenopathy Respiratory exam: Present: normal lung sounds bilaterally. Absent: respiratory distress, wheezes, rales, rhonchi, stridor Cardiovascular Exam: Present: regular rate, normal rhythm, normal heart sounds. Absent: systolic murmur, diastolic murmur, rubs, gallop, clicks GI/Abdominal exam: Present: soft, tenderness (Mild tenderness around surgical site), normal bowel sounds, other (There is a 1 cm area of dehiscence along the medial aspect of the section surgical site. No drainage noted currently. No significant erythema or increased warmth to the area. No impressive signs of infection.). Absent: distended, guarding, rebound, rigid Neurological exam: Present: alert, oriented X3, CN II-XII intact Psychiatric exam: Present: normal affect, normal mood Course Vital Signs 04/22/18 19:56 Temperature 98.0 F Pulse Rate 85 Respiratory 18 Rate Blood Pressure 131/80 O2 Sat by Pulse 99 Oximetry Medical Decision Making - Medical Decision Making 37-year-old female since to the emergency department for a chief complaint of wound dehiscence. Patient had a section 15 days ago. She was seen here in the emergency department 3 days ago for infection of the wound and has been taking Levaquin orally as directed by Dr. mejias. Patient states that she has not noticed any increased erythema, drainage, or pain around the wound. She is not feeling lethargic. She denies fevers or chills at home. On exam there is no impressive signs of infection at this time. No drainage. No increased warmth. Mild tenderness noted. There is a 1 cm area of dehiscence that was closed successfully with Steri-Strips. Patient was directed to follow up with Dr. mejias tomorrow. She does have an appointment in 4 days but I did recommend she move this appointment up. I recommended to return immediately to the emergency department if she has any worsening symptoms or fevers. Disposition Clinical Impression: Wound dehiscence Disposition: HOME SELF-CARE Condition: Good Instructions: Wound Dehiscence (ED) Additional Instructions: Please try not to put stress on the area. Follow-up with [facility] tomorrow. Return immediately to the emergency department if you have any worsening symptoms, increased pain, or fevers. Is patient prescribed a controlled substance at d/c from ED?: No Referrals: Lupe Wick MD [Primary Care Provider] - 1-2 days Time of Disposition: 20:22
== END 2018-04-22 20:56 | disposition home or self-care (01) ==
LOC: EC 19:46
DX: O90.0 Disruption of cesarean delivery wound (principal); O99.355 Diseases of the nervous system complicating the puerperium; G40.909 Epilepsy, unspecified, not intractable, without status epilepticus; O99.335 Smoking (tobacco) complicating the puerperium; O99.53 Diseases of the respiratory system complicating the puerperium; J45.909 Unspecified asthma, uncomplicated; F17.200 Nicotine dependence, unspecified, uncomplicated; Z90.49 Acquired absence of other specified parts of digestive tract; Z88.0 Allergy status to penicillin; Z88.6 Allergy status to analgesic agent; Z91.048 Other nonmedicinal substance allergy status; Z79.899 Other long term (current) drug therapy
CPT/HCPCS: 99283

== ENCOUNTER 2020-02-03 18:08 | Emergency (ER) | payer OTHER ==
[2020-02-03 18:19] VITALS: RESP 18
[2020-02-03] MEDS ORDERED: SODIUM CHLORIDE 0.9% 1,000 ML IV ONE (19:17)
[2020-02-03 19:51] LABS: Basophils # (A) 0.1 k/uL (0-0.2); Basophils % (A) 1 %; Eosinophils # (A) 0.3 k/uL (0-0.7); Eosinophils % (A) 3 %; HCT 42.6 % (34.0-46.0); HGB 13.8 gm/dL (11.4-16.0); Lymphocytes # (A) 3.1 k/uL (1.0-4.8); Lymphocytes % (A) 30 %; MCHC 32.5 g/dL (31.0-37.0); MCV 89.2 fL (80.0-100.0); Mean Platelet Volume 8.3; Monocytes # (A) 0.7 k/uL (0-1.0); Monocytes % (A) 7 %; Neutrophils # (A) 5.8 k/uL (1.3-7.7); Neutrophils % (A) 57 %; Platelet Count 251 k/uL (150-450); RBC 4.77 m/uL (3.80-5.40); RDW 13.7 % (11.5-15.5); WBC 10.2 k/uL (3.8-10.6)
--- NOTE | 2020-02-03 19:55 | ED ---
Female Urogenital HPI - General Source: patient Mode of arrival: ambulatory Limitations: no limitations <Katharina Mortensen - Last Filed: 02/03/20 21:56> <Aleida Barajas - Last Filed: 02/04/20 15:29> - General Chief complaint: Vaginal Bleeding Stated complaint: Blood in Urine Time Seen by Provider: 02/03/20 18:57 - History of Present Illness Initial comments: 39-year-old female patient presents to the emergency department today for evaluation of heavy vaginal bleeding. Patient states that she started having bl eeding a couple of hours ago. States during her first hour bleeding she had to change her pad 3 times. Patient states she has passed blood clots approximately 2-3 inches in diameter. Patient states that she had a 4 months ago, her foundry molder told her she performed a procedure that would make it so she does not have periods any longer. Patient states this is the first bleeding she's had since the . States that she did breast-feed for approximately one month after the delivery. She denies any chance of . Denies fever or chills. Denies weakness or dizziness. States she is having mild suprapubic cramping. Patient denies any recent rash, cough, shortness of breath, chest pain, nausea, vomiting, diarrhea, constipation, back pain, numbness, tingling, dizziness, weakness, dysuria, urinary urgency, urinary frequency, headache, visual changes, or any other complaints. (Katharina Mortensen) - Related Data Home Medications Medication Instructions Recorded Confirmed Ahw-Ebbg-Baeud Acid 1 cap PO DAILY 10/03/17 04/19/18 [-U Capsule (formulary)] Albuterol Inhaler (Mhu) [Ventolin 1 - 2 puff INHALATION RT-Q6H PRN 04/04/18 04/19/18 Hfa Inhaler] Folic Acid 1 mg PO BID 04/04/18 04/19/18 HYDROcodone/APAP 5-325MG [[place] 1 tab PO Q6HR PRN 04/19/18 04/19/18 5-325] Ibuprofen [Motrin] 600 mg PO Q8HR PRN 04/19/18 04/19/18 levETIRAcetam [Keppra] 500 mg PO Q12HR 04/19/18 04/19/18 Allergies Allergy/AdvReac Type Severity Reaction Status Date / Time adhesive tape Allergy MOREIRA SKINS Verified 02/03/20 18:19 amoxicillin [Amoxicillin] Allergy Anaphylaxis Verified 02/03/20 18:19 aspirin Allergy Anaphylaxis Verified 02/03/20 18:19 Penicillins Allergy Anaphylaxis Verified 02/03/20 18:19 Review of Systems ROS Other: All systems not noted in ROS Statement are negative. <Katharina Mortensen - Last Filed: 02/03/20 21:56> ROS Other: All systems not noted in ROS Statement are negative. <Aleida Barajas - Last Filed: 02/04/20 15:29> ROS Statement: Those systems with pertinent positive or pertinent negative responses have been documented in the HPI. Past Medical History Past Medical History: Asthma, Neurologic Disorder, Seizure Disorder Additional Past Medical History / Comment(s): migraines. LAST SEIZURE-07/2017 History of Any Multi-Drug Resistant Organisms: None Reported Past Surgical History: Appendectomy, Section, Cholecystectomy, Orthopedic Surgery, Tonsillectomy, Tubal Ligation Additional Past Surgical History / Comment(s): dental surgery. RT ANKLE TENDON SX Past Anesthesia/Blood Transfusion Reactions: Previous Problems w/ Anesthesia Additional Past Anesthesia/Blood Transfusion Reaction / Comment(s): HAD BREATHING PROBLEMS DURING APPENDECTOMY Past Psychological History: Anxiety, Depression Smoking Status: Current every day smoker Past Alcohol Use History: None Reported Past Drug Use History: None Reported - Past Family History Father Family Medical History: Cancer Mother Family Medical History: Cancer, Coronary Artery Disease (CAD), Diabetes Mellitus, Hypertension Additional Family Medical History / Comment(s): lupus <Katharina Mortensen - Last Filed: 02/03/20 21:56> General Exam Limitations: no limitations General appearance: alert, in no apparent distress, other (This is a well- developed, well-nourished adult female patient in no acute distress. Vital signs upon presentation are temperature 98.4F, pulse 88, respirations 18, blood pressure 151/90, pulse ox 96% on room air.) Eye exam: Present: normal appearance, PERRL, EOMI. Absent: scleral icterus, conjunctival injection, periorbital swelling Respiratory exam: Present: normal lung sounds bilaterally. Absent: respiratory distress, wheezes, rales, rhonchi, stridor Cardiovascular Exam: Present: regular rate, normal rhythm, normal heart sounds. Absent: systolic murmur, diastolic murmur, rubs, gallop, clicks GI/Abdominal exam: Present: soft, normal bowel sounds. Absent: distended, tenderness, guarding, rebound, rigid External exam: Present: normal external exam Speculum exam: Present: vaginal bleeding (Mild, dark red), other (Cervical os is closed) By manual exam: Present: normal by manual exam Neurological exam: Present: alert, oriented X3, CN II-XII intact Psychiatric exam: Present: normal affect, normal mood Skin exam: Present: warm, dry, intact, normal color. Absent: rash <Katharina Mortensen - Last Filed: 02/03/20 21:56> Course Vital Signs 02/03/20 02/03/20 18:15 21:52 Temperature 98.4 F 98.0 F Pulse Rate 88 81 Respiratory 18 18 Rate Blood Pressure 151/90 112/66 O2 Sat by Pulse 96 98 Oximetry Medical Decision Making - Lab Data Result diagrams: 02/03/20 19:35 02/03/20 19:35 - Radiology Data Radiology results: report reviewed, image reviewed <Katharina Mortensen - Last Filed: 02/03/20 21:56> - Lab Data Result diagrams: 02/03/20 19:35 02/03/20 19:35 <Aleida Barajas - Last Filed: 02/04/20 15:29> - Medical Decision Making 39-year-old female patient presents to the emergency department today for evaluation of vaginal bleeding for the last couple of hours. Physical examination revealed a soft nontender abdomen. Vaginal exam was performed and showed a mild dark red blood in the vaginal canal. Ultrasound was obtained and was negative other than a thickened endometrium. Labs reviewed and were unremarkable. We did discuss dysfunctional uterine bleeding. She will be discharged to follow-up with gynecology, she plans to see Dr. Walker. Return parameters were discussed in detail. She verbalizes understanding and agrees with this plan. (Katharina Mortensen) I was available for consultation in the emergency department. The history and physical exam were done by the midlevel provider. I was consulted for this patients care. I reviewed the case with the midlevel provider and based on their presentation of the patient, I agree with the assessment, medical decision making and plan of care as documented. Chart was dictated using [employer] dictation software. Attempts were made to correct any dictation errors however some typographical errors may persist. (Aleida Barajas) - Lab Data Lab Results 02/03/20 02/03/20 02/03/20 Range/Units 19:35 19:35 19:35 WBC 10.2 (3.8-10.6) k/uL RBC 4.77 (3.80-5.40) m/uL Hgb 13.8 (11.4-16.0) gm/dL Hct 42.6 (34.0-46.0) % MCV 89.2 (80.0-100.0) fL MCH 29.0 (25.0-35.0) pg MCHC 32.5 (31.0-37.0) g/dL RDW 13.7 (11.5-15.5) % Plt Count 251 (150-450) k/uL Neutrophils % 57 % Lymphocytes % 30 % Monocytes % 7 % Eosinophils % 3 % Basophils % 1 % Neutrophils # 5.8 (1.3-7.7) k/uL Lymphocytes # 3.1 (1.0-4.8) k/uL Monocytes # 0.7 (0-1.0) k/uL Eosinophils # 0.3 (0-0.7) k/uL Basophils # 0.1 (0-0.2) k/uL PT 9.9 (9.0-12.0) sec INR 0.9 (<1.2) APTT 26.5 (22.0-30.0) sec Sodium (137-145) mmol/L Potassium (3.5-5.1) mmol/L Chloride (98-107) mmol/L Carbon Dioxide (22-30) mmol/L Anion Gap mmol/L BUN (7-17) mg/dL Creatinine (0.52-1.04) mg/dL Est GFR (CKD-EPI)AfAm (>60 ml/min/1.73 sqM) Est GFR (CKD-EPI)NonAf (>60 ml/min/1.73 sqM) Glucose (74-99) mg/dL Calcium (8.4-10.2) mg/dL Total Bilirubin (0.2-1.3) mg/dL AST (14-36) U/L ALT (4-34) U/L Alkaline Phosphatase (38-126) U/L Total Protein (6.3-8.2) g/dL Albumin (3.5-5.0) g/dL Urine Color Light Red Urine Appearance Cloudy H (Clear) Urine pH 5.5 (5.0-8.0) Ur Specific Witter 1.025 (1.001-1.035) Urine Protein 1+ H (Negative) Urine Glucose (UA) Negative (Negative) Urine Ketones Trace H (Negative) Urine Blood Large H (Negative) Urine Nitrite Negative (Negative) Urine Bilirubin Negative (Negative) Urine Urobilinogen <2.0 (<2.0) mg/dL Ur Leukocyte Esterase Small H (Negative) Urine RBC >182 H (0-5) /hpf Urine WBC 119 H (0-5) /hpf Urine WBC Clumps Few H (None) /hpf Ur Squamous Epith Cells 1 (0-4) /hpf Urine Bacteria Moderate H (None) /hpf Urine Mucus Moderate H (None) /hpf Urine Yeast (Budding) Many H (None) /hpf Urine HCG, Qual (Not Detectd) Blood Type Blood Type Recheck Bld Type Recheck Status Antibody Screen Spec Expiration Date 02/03/20 02/03/20 02/03/20 Range/Units 19:35 19:35 19:35 WBC (3.8-10.6) k/uL RBC (3.80-5.40) m/uL Hgb (11.4-16.0) gm/dL Hct (34.0-46.0) % MCV (80.0-100.0) fL MCH (25.0-35.0) pg MCHC (31.0-37.0) g/dL RDW (11.5-15.5) % Plt Count (150-450) k/uL Neutrophils % % Lymphocytes % % Monocytes % % Eosinophils % % Basophils % % Neutrophils # (1.3-7.7) k/uL Lymphocytes # (1.0-4.8) k/uL Monocytes # (0-1.0) k/uL Eosinophils # (0-0.7) k/uL Basophils # (0-0.2) k/uL PT (9.0-12.0) sec INR (<1.2) APTT (22.0-30.0) sec Sodium 137 (137-145) mmol/L Potassium 4.1 (3.5-5.1) mmol/L Chloride 105 (98-107) mmol/L Carbon Dioxide 25 (22-30) mmol/L Anion Gap 7 mmol/L BUN 11 (7-17) mg/dL Creatinine 0.67 (0.52-1.04) mg/dL Est GFR (CKD-EPI)AfAm >90 (>60 ml/min/1.73 sqM) Est GFR (CKD-EPI)NonAf >90 (>60 ml/min/1.73 sqM) Glucose 92 (74-99) mg/dL Calcium 8.9 (8.4-10.2) mg/dL Total Bilirubin 0.5 (0.2-1.3) mg/dL AST 23 (14-36) U/L ALT 20 (4-34) U/L Alkaline Phosphatase 77 (38-126) U/L Total Protein 6.7 (6.3-8.2) g/dL Albumin 4.2 (3.5-5.0) g/dL Urine Color Urine Appearance (Clear) Urine pH (5.0-8.0) Ur Specific Witter (1.001-1.035) Urine Protein (Negative) Urine Glucose (UA) (Negative) Urine Ketones (Negative) Urine Blood (Negative) Urine Nitrite (Negative) Urine Bilirubin (Negative) Urine Urobilinogen (<2.0) mg/dL Ur Leukocyte Esterase (Negative) Urine RBC (0-5) /hpf Urine WBC (0-5) /hpf Urine WBC Clumps (None) /hpf Ur Squamous Epith Cells (0-4) /hpf Urine Bacteria (None) /hpf Urine Mucus (None) /hpf Urine Yeast (Budding) (None) /hpf Urine HCG, Qual Not Detected (Not Detectd) Blood Type A Positive Blood Type Recheck A Pos Bld Type Recheck Status No Antibody Screen NEGATIVE Spec Expiration Date 02/06/2020 1869 - Radiology Data Transvaginal ultrasound was obtained. Report reviewed in its entirety. Impression by Dr. Munroe shows no evidence of ovarian torsion. Thickened endometrium and no evidence of a mass. No adnexal mass. (Katharina Mortensen) Disposition Is patient prescribed a controlled substance at d/c from ED?: No Time of Disposition: 21:18 <Katharina Mortensen - Last Filed: 02/03/20 21:56> <Aleida Barajas - Last Filed: 02/04/20 15:29> Clinical Impression: Vaginal bleeding Disposition: HOME SELF-CARE Condition: Good Instructions (If sedation given, give patient instructions): Dysmenorrhea (ED) Additional Instructions: Follow-up with gynecology for further evaluation as soon as possible. Return to the emergency department immediately for any new, worsening, or concerning symptoms. Referrals: Penny Walker DO [Doctor of Osteopathic Medicine] - 1-2 days
[2020-02-03 20:03] LABS: ALT 20 U/L (4-34); AST 23 U/L (14-36); African American GFR (CKD) >90 (>60 ml/min/1.73 sqM); Albumin 4.2 g/dL (3.5-5.0); Alkaline Phosphatase 77 U/L (38-126); Anion Gap 7 mmol/L; Blood Urea Nitrogen 11 mg/dL (7-17); Calcium 8.9 mg/dL (8.4-10.2); Carbon Dioxide 25 mmol/L (22-30); Chloride 105 mmol/L (98-107); Glucose 92 mg/dL (74-99); INR 0.9 (<1.2); Non-African American GFR(CKD) >90 (>60 ml/min/1.73 sqM); Partial Thromboplastin Time 26.5 sec (22.0-30.0); Potassium 4.1 mmol/L (3.5-5.1); Prothrombin Time 9.9 sec (9.0-12.0); Sodium 137 mmol/L (137-145); Total Bilirubin 0.5 mg/dL (0.2-1.3); Total Protein 6.7 g/dL (6.3-8.2)
[2020-02-03 20:25] LABS: Appearance,Urine Cloudy (Clear); Bacteria,Urine Moderate /hpf; Bilirubin,Urine Negative (Negative); Blood,Urine Large (Negative); Budding Yeast,Urine Many /hpf; Color,Urine Light Red; Glucose,Urine (UA) Negative (Negative); Ketones,Urine Trace (Negative); Leukocyte Esterase,Urine Small (Negative); Mucus,Urine Moderate /hpf; Nitrite,Urine Negative (Negative); PH, Urine 5.5 (5.0-8.0); Protein,Urine 1+ (Negative); RBC,Urine >182 /hpf (0-5); Specific Gravity,Urine 1.025 (1.001-1.035); Squamous Epithelial Cell,Urine 1 /hpf (0-4); Urobilinogen,Urine <2.0 mg/dL (<2.0); WBC,Urine 119 /hpf (0-5)
--- NOTE | 2020-02-03 20:40 | US ---
EXAMINATION TYPE: US transvaginal DATE OF EXAM: 02/03/2020 COMPARISON: NONE CLINICAL HISTORY: pain. Heavy bleeding and cramping x 1 day, 3, para 2, miscarriage 1, histor y of 2 c-sections. TECHNIQUE: Transvaginal ER exam. Date of LMP: 2018 EXAM MEASUREMENTS: Uterus: 8.8 x 4.9 x 3.7 cm Endometrial Stripe: 2.0 cm Right Ovary: 3.2 x 1.8 x 1.3 cm Left Ovary: 2.0 x 1.0 x 1.5 cm Difficult and limited study due to patient body habitus 1. Uterus: heterogeneous 2. Endometrium: thickened 3. Right Ovary: wnl 4. Left Ovary: wnl Spectral, color and waveform doppler imaging shows good arterial and venous flow within the right o vary and good arterial flow within the left ovary, unable to obtain venous flow within the left ovary . 5. Bilateral Adnexa: wnl 6. Posterior cul-de-sac: wnl IMPRESSION: No evidence of ovarian torsion. Thickened endometrium without evidence of a mass. No adnexal mass.
[2020-02-03 21:55] VITALS: BP 112/66; PULSE 81; TEMP 98
== END 2020-02-03 21:57 | disposition home or self-care (01) ==
LOC: EC 18:08
DX: N93.9 Abnormal uterine and vaginal bleeding, unspecified (principal); G40.909 Epilepsy, unspecified, not intractable, without status epilepticus; J45.909 Unspecified asthma, uncomplicated; F17.200 Nicotine dependence, unspecified, uncomplicated; Z79.899 Other long term (current) drug therapy; Z91.048 Other nonmedicinal substance allergy status; Z88.0 Allergy status to penicillin; Z88.6 Allergy status to analgesic agent
CPT/HCPCS: 36415; 76830; 80053; 81001; 81025; 85025; 85610; 85730; 86850; 86900; 86901; 87086; 93975; 96360; 96361; 99284

== ENCOUNTER → 2020-05-11 | Outpatient (CLI) | payer OTHER | END | disposition home or self-care (01) | LOC: LABWHC1 12:52 | PROVIDERS: ATTEND Family Medicine | DX: Z53.9 Procedure and treatment not carried out, unspecified reason (principal) ==

== ENCOUNTER → 2020-06-05 | Outpatient (CLI) | payer OTHER | END | disposition home or self-care (01) | LOC: LABWHC1 09:17 | PROVIDERS: ATTEND Obstetrics & Gynecology Obstetrics | DX: Z53.9 Procedure and treatment not carried out, unspecified reason (principal) ==

== ENCOUNTER 2020-06-15 07:39 | Day surgery (SDC) | payer OTHER ==
[2020-06-08 18:09] VITALS: BMI 51.3
[~2020-06-15 07:39] MED LIST: DEXAMETHASONE SOD PHOSPHATE 4 MG/ML 1 ML VIAL IV ONE; HYDROmorphone 0.5 MG/0.5 ML SYRINGE IVP PRN; LACTATED RINGERS 1,000 ML IV SCH; ONDANSETRON 4 MG/2 ML VIAL IVP ONE; Pre Op ABX Message 1 EACH MISC MISCELLANE ONE
[2020-06-15] MEDS ORDERED: SUCCINYLCHOLINE CHLORIDE 100 MG/5 ML SYR IV ONE (09:42)
[2020-06-15] MEDS ORDERED: PROPOFOL 10 MG/ML 20 ML VIAL IV ONE (09:42)
[2020-06-15] MEDS ORDERED: MIDAZOLAM 2 MG/2 ML VIAL ONE (09:42)
[2020-06-15] MEDS ORDERED: fentaNYL (PF) 50 MCG/ML 2 ML AMP ONE (09:42)
[2020-06-15] MEDS ORDERED: LIDOCAINE 1% INJ 10MG/ML (20 ML MDV) ONE (09:42)
[2020-06-15 09:53] LABS: HCT 40.6 % (34.0-46.0); HGB 13.8 gm/dL (11.4-16.0); MCH 29.9 pg (25.0-35.0); Mean Platelet Volume 8.4; Platelet Count 235 k/uL (150-450); RBC 4.61 m/uL (3.80-5.40); RDW 13.4 % (11.5-15.5); WBC 8.2 k/uL (3.8-10.6)
[2020-06-15] MEDS ORDERED: ACETAMINOPHEN IV (For NPO) 1,000 MG in EMPTY BAG 1 BAG IVPB STA (10:09)
--- NOTE | 2020-06-15 10:12 | P.OP ---
Date of Procedure: 06/15/20 Preoperative Diagnosis: Menorrhagia, anemia Postoperative Diagnosis: Same Procedure(s) Performed: Hysteroscopy, dilation and curettage, endometrial ablation with NovaSure Anesthesia: MARQUISE Surgeon: Penny Walker Estimated Blood Loss (ml): 2 IV fluids (ml): 300 Urine output (ml): 100 Pathology: other (Endometrial curettings) Condition: stable Disposition: PACU Indications for Procedure: Heavy menstrual bleeding, anemia Operative Findings: Proliferative endometrial cavity Description of Procedure: Patient was seen in the preoperative area procedure was reviewed questions were answered. Patient was taken back to the operating suite where general anesthesia without difficulty by the anesthesia department. She was prepped and draped in the normal sterile fashion in the dorsal lithotomy position. Red rubber catheter was then used to drain the bladder clear yellow urine. A weighted speculum was placed in the posterior vaginal vault the anterior lip of the cervix is visualized and grasped with a single-tooth tenaculum. Cervical canal was then dilated to 15-English. Hysteroscope was placed through the cervix and toward the endometrial cavity. A proliferative endometrium was noted. Pictures were taken and the hysteroscope was removed. Sharp curettage was performed this specimen was then sent to pathology for analysis. The NovaSure was then opened and set the appropriate measurements per this patient's uterine cavity, a length of 4.5, width of 4.1, power of 101 for 1 minute 49 seconds. The cycle was allowed to complete after cavity assessment was passed. After the cycle was complete the device was removed without difficulty. The single-tooth tenaculum was taken off of the anterior lip of the cervix and hemostasis was appreciated. All instruments removed from the patient's vaginal vault counts were noted be correct 2 at end of procedure patient was taken to the recovery room awake in stable condition.
[2020-06-15] MEDS ORDERED: ONDANSETRON 4 MG/2 ML VIAL IVP ONE (10:40)
[2020-06-15] MEDS ORDERED: ACETAMINOPHEN IV (For NPO) 1,000 MG/100 ML VIAL IVPB ONE (10:40)
[2020-06-15 10:57] VITALS: TEMP 97.8
[2020-06-15 12:01] VITALS: PULSE 62; RESP 18
[2020-06-15 12:15] VITALS: BP 110/78
== END 2020-06-15 12:22 | disposition home or self-care (01) ==
LOC: OR 07:39
PROVIDERS: ATTEND Obstetrics & Gynecology Obstetrics
DX: F41.9 Anxiety disorder, unspecified (principal); J45.909 Unspecified asthma, uncomplicated; F32.9 Major depressive disorder, single episode, unspecified; G40.909 Epilepsy, unspecified, not intractable, without status epilepticus; G43.909 Migraine, unspecified, not intractable, without status migrainosus; F17.210 Nicotine dependence, cigarettes, uncomplicated; Z90.49 Acquired absence of other specified parts of digestive tract; Z98.890 Other specified postprocedural states; Z98.891 History of uterine scar from previous surgery; Z83.3 Family history of diabetes mellitus; Z80.1 Family history of malignant neoplasm of trachea, bronchus and lung; Z80.49 Family history of malignant neoplasm of other genital organs; Z80.3 Family history of malignant neoplasm of breast; Z82.69 Family history of other diseases of the musculoskeletal system and connective tissue; Z82.0 Family history of epilepsy and other diseases of the nervous system; Z79.899 Other long term (current) drug therapy; Z88.6 Allergy status to analgesic agent; Z88.0 Allergy status to penicillin; Z91.09 Other allergy status, other than to drugs and biological substances
CPT/HCPCS: 81025; 88305; 85027; 58563; U0003; C9803; J2250; J1100; J2405; J2001; J3010; J0131; J0330; J2704; J1170

== ENCOUNTER → 2020-09-02 | Outpatient (CLI) | payer OTHER | END | disposition home or self-care (01) | LOC: LABWHC1 16:06 | PROVIDERS: ATTEND Family Medicine | DX: Z20.822 Contact with and (suspected) exposure to COVID-19 (principal) | CPT/HCPCS: U0003; C9803 ==

== ENCOUNTER → 2020-11-05 | Outpatient (CLI) | payer OTHER | END | disposition home or self-care (01) | LOC: LABWHC1 16:19 | PROVIDERS: ATTEND Family Medicine | DX: Z20.822 Contact with and (suspected) exposure to COVID-19 (principal) | CPT/HCPCS: U0003; C9803 ==

== ENCOUNTER 2021-03-19 10:10 | Emergency (ER) | payer OTHER ==
[2021-03-19 10:57] VITALS: TEMP 97.9
--- NOTE | 2021-03-19 11:37 | ED ---
General Adult HPI - General Chief complaint: Extremity Problem,Nontraumatic Stated complaint: L Leg Pain/Swelling Time Seen by Provider: 03/19/21 11:00 Source: patient, RN notes reviewed Mode of arrival: ambulatory Limitations: no limitations - History of Present Illness Initial comments: 40-year-old female with a past medical history of obesity, asthma, seizure disorder, migraines presents to the emergency room for a chief complaint of left leg pain. Patient reports her last month or so she has had left hip pain. States it has been painful to walk on it and move it. However today the pain traveled down her leg and she noticed some swelling in her left foot. She called her doctor who thought she should come to the ER for an ultrasound. Betzaida ent denies chest pain or shortness of breath. Denies fevers.Patient has no other complaints at this time including shortness of breath, chest pain, abdominal pain, nausea or vomiting, headache, or visual changes. - Related Data Home Medications Medication Instructions Recorded Confirmed Albuterol Inhaler [Ventolin Hfa 2 puff INHALATION RT-QID PRN 03/19/21 03/19/21 Inhaler] Previous Rx's Medication Instructions Recorded predniSONE 50 mg PO DAILY #5 tablet 03/19/21 Allergies Allergy/AdvReac Type Severity Reaction Status Date / Time adhesive tape Allergy MOREIRA SKINS Verified 03/19/21 13:44 amoxicillin [Amoxicillin] Allergy Anaphylaxis Verified 03/19/21 13:44 aspirin Allergy Anaphylaxis Verified 03/19/21 13:44 Penicillins Allergy Anaphylaxis Verified 03/19/21 13:44 Review of Systems ROS Statement: Those systems with pertinent positive or pertinent negative responses have been documented in the HPI. ROS Other: All systems not noted in ROS Statement are negative. Past Medical History Past Medical History: Asthma, Neurologic Disorder, Seizure Disorder Additional Past Medical History / Comment(s): migraines. LAST SEIZURE-07/2017 History of Any Multi-Drug Resistant Organisms: None Reported Past Surgical History: Appendectomy, Section, Cholecystectomy, Tonsillectomy Additional Past Surgical History / Comment(s): dental surgery. RT ANKLE TENDON SX Past Anesthesia/Blood Transfusion Reactions: Previous Problems w/ Anesthesia Additional Past Anesthesia/Blood Transfusion Reaction / Comment(s): HAD BREATHING PROBLEMS DURING APPENDECTOMY Past Psychological History: Anxiety, Depression Smoking Status: Current every day smoker Past Alcohol Use History: None Reported Past Drug Use History: None Reported - Past Family History Father Family Medical History: Cancer Mother Family Medical History: Cancer, Coronary Artery Disease (CAD), Diabetes Mellitus, Hypertension Additional Family Medical History / Comment(s): lupus General Exam Limitations: no limitations General appearance: alert, in no apparent distress Head exam: Present: atraumatic Eye exam: Present: normal appearance, PERRL, EOMI. Absent: scleral icterus ENT exam: Present: normal exam, mucous membranes moist Neck exam: Present: normal inspection, full ROM. Absent: tenderness Respiratory exam: Present: normal lung sounds bilaterally. Absent: respiratory distress, wheezes Cardiovascular Exam: Present: regular rate, normal rhythm, normal heart sounds GI/Abdominal exam: Present: soft, normal bowel sounds. Absent: distended, tenderness Extremities exam: Present: normal capillary refill (capillary refill less than 2 seconds, DP pulse 2+ left lower extremity.), pedal edema (Left pedal edema noted, nonpitting), other (Sensation intact LLE. skin color is normal). Absent: full ROM ( 90 flexion of the left hip, extension to neutral position), calf tenderness Course Vital Signs 03/19/21 03/19/21 10:54 12:41 Temperature 97.9 F Pulse Rate 89 79 Respiratory 18 16 Rate Blood Pressure 133/79 113/69 O2 Sat by Pulse 97 99 Oximetry Medical Decision Making - Medical Decision Making Patient presents for left hip pain as well as some swelling in the left foot. Physical exam exam reveals minimal edema in the left foot and some limited range of motion of the left hip. Neurovascular status otherwise intact. X-ray of the left hip and pelvis shows no acute fracture or dislocation. Ultrasound shows no evidence for DVT. Given pain radiating down the leg patient will be treated with steroids as there may be a possible radicular component. She will follow up with orthopedics. She'll return for any worsening symptoms. Disposition Clinical Impression: Leg pain Disposition: HOME SELF-CARE Condition: Good Instructions (If sedation given, give patient instructions): Leg Pain (ED) Additional Instructions: Take steroid as directed. Follow-up with primary care and orthopedics. Return to the emergency room for any worsening symptoms. Prescriptions: predniSONE 50 mg PO DAILY #5 tablet Is patient prescribed a controlled substance at d/c from ED?: No Referrals: Lupe Wick MD [Primary Care Provider] - 1-2 days Gregorio Moon MD [Medical Doctor] - 1-2 days Time of Disposition: 13:46
--- NOTE | 2021-03-19 12:14 | XR ---
EXAMINATION TYPE: XR Hip LT and AP Pelvis DATE OF EXAM: 03/19/2021 COMPARISON: NONE HISTORY: Left hip pain TECHNIQUE: A single AP view of the pelvis is obtained. Two views of the left hip are obtained. FINDINGS: There is no acute fracture/dislocation evident in the pelvis. The hip and sacroiliac join ts appear symmetric and unremarkable. The overlying soft tissue appears unremarkable. Changes of ost eitis pubis are noted. Two views of left hip show no acute fracture or dislocation. No focal lytic or sclerotic lesion seen in the proximal left femur. The overlying soft tissue is unremarkable. IMPRESSION: There is no acute fracture or dislocation in the pelvis or left hip.
--- NOTE | 2021-03-19 13:08 | US ---
EXAMINATION TYPE: US venous doppler duplex LE LT DATE OF EXAM: 03/19/2021 12:40 PM COMPARISON: NONE CLINICAL HISTORY: edema, pain. Edema, pain. No hx of DVT. Patient does not take blood thinners. SIDE PERFORMED: Left TECHNIQUE: The lower extremity deep venous system is examined utilizing real time linear array sonog ernesto with graded compression, doppler sonography and color-flow sonography. VESSELS IMAGED: Common Femoral Vein Deep Femoral Vein Greater Saphenous Vein * Femoral Vein Popliteal Vein Small Saphenous Vein * Proximal Calf Veins (* superficial vessels) Limited due to patient body habitus. Curved probe needed to image portions of femoral vein. Left Leg: No evidence of DVT in veins imaged at this time. IMPRESSION: No evidence for DVT.
[2021-03-19 14:09] VITALS: BP 116/60; PULSE 80; RESP 18
== END 2021-03-19 14:09 | disposition home or self-care (01) ==
LOC: EC 10:10
DX: M79.605 Pain in left leg (principal); J45.909 Unspecified asthma, uncomplicated; G40.909 Epilepsy, unspecified, not intractable, without status epilepticus; E66.9 Obesity, unspecified; G43.909 Migraine, unspecified, not intractable, without status migrainosus; F17.200 Nicotine dependence, unspecified, uncomplicated; F41.9 Anxiety disorder, unspecified; F32.9 Major depressive disorder, single episode, unspecified; Z79.52 Long term (current) use of systemic steroids; Z79.51 Long term (current) use of inhaled steroids; Z68.44 Body mass index [BMI] 60.0-69.9, adult
CPT/HCPCS: 73502; 99284